=== PATIENT | male | born 1960 | race Asian ===

== ENCOUNTER 2021-04-12 07:32 | Outpatient (REF) | payer BC, SELFPAY ==
[2021-04-12 12:05] LABS: Estimated Average Glucose 194 mg/dL; Hemoglobin A1c % 8.4 %
[2021-04-12 12:09] LABS: Creatinine Urine 126.82 mg/dL; Microalbum/Creatinine Ratio Ur 29.1 ug/mg cr
[2021-04-12 12:11] LABS: Alanine Aminotransferase 48 U/L (0-40); Albumin Level 4.5 g/dL (3.5-5.0); Alkaline Phosphatase 68 U/L (39-117); Anion Gap 12 (12-20); Aspartate Amino Transferase 30 U/L (5-37); Bilirubin Total 1.1 mg/dL (0.0-1.0); Blood Urea Nitrogen 10 mg/dL (9-16); Calcium 10.1 mg/dL (8.4-10.2); Carbon Dioxide 31 mmol/L (22-29); Chloride 100 mmol/L (96-108); Cholesterol 142 mg/dL; Estimated Glomerular Filt Rate > 60; Glucose Random 178 mg/dL (60-115); HDL Cholesterol 38 mg/dL; LDL Cholesterol Calculated 74 mg/dl; Potassium 4.3 mmol/L (3.3-5.1); Sodium 139 mmol/L (135-145); Total Protein 7.7 g/dL (6.5-8.0); Triglycerides 151 mg/dL
[2021-04-12 12:33] LABS: Prostate Specific Antigen Scr 1.12 ng/mL (<0.05-4.0); TSH reflex Free T4 1.19 uIU/mL (0.32-4.0)
== END 2021-04-12 07:33 | disposition home or self-care (01) ==
LOC: HO.WFDLDS 07:32
PROVIDERS: Visit Provider Family Medicine
DX: Z00.00 Encounter for general adult medical examination without abnormal findings (principal); I10 Essential (primary) hypertension; R73.01 Impaired fasting glucose; Z12.5 Encounter for screening for malignant neoplasm of prostate
CPT/HCPCS: 36415; 80053; 80061; 82043; 83036; 84153; 84443

== ENCOUNTER → 2021-04-26 08:10 | Outpatient (BNVA) | payer BC, SELFPAY | PROVIDERS: PCP Family Medicine; Referring Provider Family Medicine; Visit Provider Internal Medicine | DX: I25.10 Atherosclerotic heart disease of native coronary artery without angina pectoris (principal); I25.5 Ischemic cardiomyopathy; I47.1 Supraventricular tachycardia; E11.8 Type 2 diabetes mellitus with unspecified complications; Z95.1 Presence of aortocoronary bypass graft | CPT/HCPCS: 93005 ==

== ENCOUNTER → 2021-06-07 07:31 | Outpatient (REF) | payer BC, SELFPAY ==
--- NOTE | 2021-06-07 07:33 | CA_ITS ---
Transthoracic Echocardiogram Patient (Last, First, Middle): Tani Leonard C Gender: Male Date of : 1960 Age: 60 Procedure Date: 06/07/2021 Procedure Type: Transthoracic Echocardiogram Location: OP Height: 182.88 cm Weight: 89.81 kg BSA: 2.12 m2 Heart Rate: bpm BP: 104 / 80 mmHg Roving Department Supervisor: LIZ Referring MD: Stewart Redding MD Salon Receptionist: Tenzin Stovall MD Symptoms: I25.10 - Atherosclerotic heart disease of [place] coronary... Study Quality: Fair ECG Rhythm: Sinus Conclusions: - 1. Normal LV systolic function with grade I diastolic dysfunction 2. Normal cardiac valvular Dopplers 3. No gross pericardial effusion Findings Left Ventricle Normal left ventricular size, thickness, and systolic function. The visually estimated ejection fraction is between 60-65%. There is no evidence of regional wall motion abnormalities. Spectral Doppler is indicative of an impaired relaxation filling pattern. E/E prime ratio is <8, consistent with normal filling pressures. Evidence suggests grade I (mild) diastolic dysfunction. Right Ventricle Normal right ventricular cavity size and systolic function. Atria The left atrium is mildly dilated. There is no evidence of interatrial shunt. The right atrium was not well visualized. Aortic Valve Normal aortic valve structure and function. There is no aortic valve stenosis. There is no aortic valve regurgitation. Mitral Valve There is mild posterior mitral leaflet thickening. There is mild mitral annular calcification. There is trace mitral valve regurgitation. There is no mitral valve stenosis. Pulmonic Valve The pulmonic valve was not well visualized. Tricuspid Valve Likely normal tricuspid valve structure and function. There is trace tricuspid valve regurgitation. Tricuspid regurgitation envelope is inadequate for calculation of right ventricular systolic pressure. Great Vessels All visible segments of the aorta are normal in size. The pulmonary artery was not well visualized. Venous The inferior vena cava is normal in size and collapses greater than 50% with inspiration. Pericardium/Pleural There is no evidence of pericardial effusion. Prior Study Comparison No prior study available for comparison. Measurements 2D Linear Measurements IVSd: 1.10 0.6-0.9/0.6-1.0 cm LVIDd: 4.85 3.9-5.3/4.2-5.9 cm LVIDd Index: 2.29 2.4-3.2/2.2-3.1 cm/m2 LVIDs: 3.01 2.0-3.6 cm LVPWd: 1.13 0.7-1.1 cm LA Diam: 4.70 2.7-3.8/3.0-4.0 cm LAIDs Index: 2.22 1.5-2.3 cm/m2 LV Mass: 250.44 67-162/88-224 g LV Mass Index: 118.13 43-95/49-115 g/m2 LVOT Diam: 2.50 3.0+(-)1.3 cm 2D Systolic Function EF 4C: 51.90 >55% EF 2C: 65.90 >55% EF BiP: 60.90 >55% Mitral Valve MV Pk E: 0.49 MV PK A: 0.82 MV Decel Time: 125.00 E/A: 0.60 E'Lateral: 7.72 E'Medial: 6.53 E/E' Med: 7.50 E/E' Lat: 6.30 PHT: 36.00 MVA PHT: 6.11 Decel [place]: 3.92 Aortic Valve AoV Pk Jose: 0.90 AoV Pk Grad: 3.00 LVOT LVOT Pk Jose: 0.67 LVOT Mn Jose: 0.46 LVOT VTI: 0.15 LVOT Pk Grad: 2.00 LVOT Mn Grad: 1.00 LVOT Diam: 2.50 LVOT Area: 4.91 Diastolic Function MV Pk E: 0.49 MV Pk A: 0.82 E/A: 0.60 E'Medial: 6.53 E/E' Med: 7.50 E' Laterial: 7.72 E/E' Lat: 6.30 Right Ventricle TAPSE (mm): 1.69 Tricuspid Valve RA Press: 3.00 Great Vessels Aorta Ao Asc: 3.70 2.1-3.4 cm Updated in Other Vendor System with Status of Final Tenzin Stovall MD electronically signed on 06/07/2021 8:23:39 PM with status of Final
== END ==
LOC: HO.CARD 07:31
PROVIDERS: PCP Family Medicine; Visit Provider Internal Medicine
DX: I25.10 Atherosclerotic heart disease of native coronary artery without angina pectoris (principal); Z95.1 Presence of aortocoronary bypass graft
CPT/HCPCS: 93306

== ENCOUNTER → 2021-06-29 12:58 | Outpatient (BNVA) | payer BC, SELFPAY | PROVIDERS: PCP Family Medicine; Referring Provider Family Medicine; Visit Provider Nurse Practitioner Family | DX: Z13.89 Encounter for screening for other disorder (principal) ==

== ENCOUNTER 2021-08-01 08:12 | Outpatient (REF) | payer BC, SELFPAY ==
[2021-08-01 12:09] LABS: Estimated Average Glucose 177 mg/dL; Hemoglobin A1c % 7.8 %
[2021-08-01 12:10] LABS: Alanine Aminotransferase 35 U/L (0-40); Albumin Level 4.5 g/dL (3.5-5.0); Alkaline Phosphatase 75 U/L (39-117); Anion Gap 14 (12-20); Aspartate Amino Transferase 24 U/L (5-37); Bilirubin Total 1.4 mg/dL (0.0-1.0); Blood Urea Nitrogen 12 mg/dL (9-16); Carbon Dioxide 27 mmol/L (22-29); Chloride 100 mmol/L (96-108); Cholesterol 112 mg/dL; Estimated Glomerular Filt Rate > 60; Glucose Fasting 175 mg/dL (60-99); HDL Cholesterol 35 mg/dL; LDL Cholesterol Calculated 52 mg/dl; Potassium 3.8 mmol/L (3.3-5.1); Sodium 137 mmol/L (135-145); Total Protein 7.5 g/dL (6.5-8.0); Triglycerides 129 mg/dL
== END 2021-08-01 08:13 | disposition home or self-care (01) ==
LOC: HO.WFDLDS 08:12
PROVIDERS: Visit Provider Family Medicine
DX: Z00.00 Encounter for general adult medical examination without abnormal findings (principal); E11.8 Type 2 diabetes mellitus with unspecified complications; I25.10 Atherosclerotic heart disease of native coronary artery without angina pectoris
CPT/HCPCS: 36415; 80053; 80061; 83036

== ENCOUNTER → 2021-12-19 08:01 | Outpatient (REF) | payer BC, SELFPAY ==
--- NOTE | ~2021-12-19 | NM_ITS ---
Exercise Myocardial perfusion study Indication: Atherosclerotic heart disease to evaluate for myocardial ischemia Technique: The patient was brought in for an exercise perfusion study on 12/19/2021. Patient performed exercise as per Clayton protocol and was injected 30 mCi of sestamibi was given intravenously one target HR was achieved. Images were obtained using the SPECT gamma camera interlaced with the gating device. Images were obtained in supine position. Resting perfusion study was performed on 12/20/2021. Patient was administered 30 mCi of sestamibi intravenously at rest. Images were then obtained in supine position. Images obtained with and without CT attenuation. Total DLP 75 mGy-cm. Images were processed with the software and compared side to side in short axis, horizontal long axis and vertical long axis views. Findings: The stress perfusion study showed non attenuated images show normal uptake of radiotracer in all segments of LV myocardium. Attenuation corrected images show minimal defect of the LV myocardium.. The gated study shows normal LV systolic function with calculated LVEF of 56%. LV cavity is normal in size. The gated study shows normal systolic wall thickening and contraction of all segments. There is no transient ischemic dilation. Resting study shows no change in perfusion pattern compared to stress perfusion study. Gating at rest reveals normal systolic wall motion with ejection fraction at 56%. The findings are consistent with normal myocardial perfusion. NM/NM cardiolite stress test Impression: 1. Normal myocardial perfusion 2. Gated LVEF is 56% 3. Transient ischemic dilatation not present Stress EKG is equivocal for ischemia
--- NOTE | 2021-12-19 08:04 | CA_ITS ---
Acquisition Time: 2021-12-19 08:20:44 Total Exercise Time: 00:06:26 Test Indications: Abnormal ECG Medications: SEE CHART Protocol: NIELS Max HR: 144 BPM 91% of Pred: 157 BPM Max BP: 170/078 mmHG Max Work Load: 7.6 METS Exercise stress test with exercise 6 min 26 sec of Niels protocol, achieving 92% MPHR, with mild sob, no chest discomfort, with isolated PACs and PVCs, with normotensive response to exercise, without EKG changes meeting criteria for ischemia, with borderline EKG changes noted in leads aVF, V6 of unclear signficance. Nuclear images pending. Test reviewed with Dr Redding. Note: Patient had time of rest, relaxation prior between initial BP reading and BP obtained in stage 1 of exercise. BP drop most likely reflects this. Referred By: Stewart Redding Overread By: PINEDA LEIGH
== END ==
LOC: HO.CARD 08:01
PROVIDERS: PCP Family Medicine; Visit Provider Internal Medicine
DX: I25.10 Atherosclerotic heart disease of native coronary artery without angina pectoris (principal)
CPT/HCPCS: 78452; 93017; A9500

== ENCOUNTER 2022-06-20 15:54 | Outpatient (REF) | payer BC, SELFPAY ==
--- NOTE | ~2022-06-20 | US_ITS ---
EXAMINATION: US SOFT TISSUE NECK CLINICAL INFORMATION: Localized swelling, mass and lump, head. COMPARISON: None available. TECHNIQUE: Ultrasound of the neck soft tissues is performed with high- frequency rolle-scale imaging and color Doppler. FINDINGS: Within the right submandibular region there is an enlarged lymph node which measures 1.5 cm in transverse dimension and demonstrates no appreciable fatty hilum. There is an additional adjacent lymph node which measures 1.1 cm in maximum transverse dimension but demonstrates a normal fatty hilum. Within the right superhilar mandibular region there is a lymph node which measures 1.3 cm in maximum transverse dimension and only a faint fatty hilum. Limited imaging of the left submandibular region demonstrates a few normal-sized, normal-appearing lymph nodes. US/US soft tiss head and/or neck IMPRESSION: Enlarged lymph nodes are present within the right submandibular and supramandibular regions. These are nonspecific in nature. Further evaluation can be obtained with CT soft tissue neck with intravenous contrast as clinically indicated.
== END 2022-06-20 15:55 | disposition home or self-care (01) ==
LOC: HO.US 15:54
PROVIDERS: Visit Provider Family Medicine
DX: R22.0 Localized swelling, mass and lump, head (principal)
CPT/HCPCS: 76536

== ENCOUNTER 2022-06-27 09:05 | Outpatient (REF) | payer BC, SELFPAY ==
[2022-06-27 11:25] LABS: MANUAL DIFF FLAG NO
[2022-06-27 12:02] LABS: Basophils Absolute Auto 0.1 X10*3/uL (0.0-0.2); Basophils Percent Auto 1.3 % (0-2); Eosinophils Absolute Auto 0.4 X10*3/uL (0.0-0.4); Eosinophils Percent Auto 5.8 % (0-4); Hematocrit 46.8 % (42.0-52.0); Hemoglobin 16.4 g/dl (14.0-18.0); Imm Gran Abs Auto 0.02 X10*3/uL (0.00-0.03); Imm Gran Pct Auto 0.3 % (0.0-0.4); Lymphocytes Absolute Auto 1.6 X10*3/uL (1.2-4.9); Lymphocytes Percent Auto 24.6 % (20-40); Mean Corpuscular Hemoglobin 30.4 pg (27.0-33.0); Mean Corpuscular Volume 86.7 fL (80.0-98.0); Mean Platelet Volume 10.4 fL (9.4-12.4); Monocytes Absolute Auto 0.5 X10*3/uL (0.1-1.2); Monocytes Percent Auto 6.9 % (2-11); Neutrophils Absolute Auto 4.1 x10*3/uL (2.0-8.3); Neutrophils Percent Auto 61.1 % (45-73); Platelet Count 255 X10*3/uL (160-400); Red Cell Distribution Width 12.4 % (11.0-16.0); White Blood Count 6.7 X10*3/uL (4.8-10.8)
[2022-06-27 12:39] LABS: Anion Gap 12 (12-20); Blood Urea Nitrogen 12 mg/dL (9-16); Carbon Dioxide 30 mmol/L (22-29); Chloride 100 mmol/L (96-108); Estimated Glomerular Filt Rate 58; Glucose Random 212 mg/dL (60-115); Potassium 4.4 mmol/L (3.3-5.1); Sodium 138 mmol/L (135-145)
== END 2022-06-27 09:06 | disposition home or self-care (01) ==
LOC: HO.WFDLDS 09:05
PROVIDERS: Visit Provider Family Medicine
DX: Z00.00 Encounter for general adult medical examination without abnormal findings (principal); R59.1 Generalized enlarged lymph nodes
CPT/HCPCS: 36415; 80048; 85025

== ENCOUNTER 2022-08-03 10:16 | Outpatient (REF) | payer BC, SELFPAY ==
--- NOTE | ~2022-08-03 | CT_ITS ---
EXAMINATION: CT SOFT TISSUE NECK WITH CONTRAST CLINICAL INFORMATION: R submandibular mass w/ abnormal U/S. COMPARISON: None. TECHNIQUE: Following the administration of 60 mL of Omnipaque 300 intravenous contrast, helical imaging was performed in the axial plane with generation of coronal and sagittal reformatted images. This CT examination was performed using dose optimization techniques as appropriate, variously including the following: *Automated exposure control. *Adjustment of mA and/or kV according to patient size (this includes techniques or standardized protocols for targeted exams where dose is matched to indication/reason for exam; i.e. extremities or head). *Use of iterative reconstruction technique. DLP: 343 mGy-cm. FINDINGS: Nasopharynx/skull base: The fat planes of the skull base and soft tissues of the nasopharynx are unremarkable. The paranasal sinuses and mastoid air cells are well aerated. The temporomandibular joints are normal. Suprahyoid neck: The oropharynx, oral cavity, and bilateral salivary gland tissues are unremarkable. Infrahyoid neck: The hypopharynx and larynx are unremarkable. No aerodigestive tract mass. Thyroid: The thyroid gland is normal. Lymph nodes: There are several mildly enlarged right level 1B cervical lymph nodes measuring up to 1.1 cm short axis (series 4 image 153). No other cervical lymphadenopathy. Lung apices: The partially visualized lung apices are clear. Status post median sternotomy. Vascular structures: No hemodynamically significant stenosis, dissection, or occlusion. Osseous structures: The osseous structures are intact without suspicious focal lesion. Moderate to advanced multilevel cervical spondylosis. Other: The imaged portions of the brain parenchyma are unremarkable. CT/CT soft tissue neck w IV con IMPRESSION: Mild right level 1B cervical lymphadenopathy of uncertain etiology. Otherwise unremarkable soft tissues of the neck.
[2022-08-03] MEDS: iohexoL 350 MG/ML 100 ML INFUS..BTL 60 ML IV (10:55)
[2022-08-04 07:09] LABS: Creatinine POC 0.9 mg/dL (0.5-1.4); GFR POC > 60
== END 2022-08-03 10:17 | disposition home or self-care (01) ==
LOC: HO.CT 10:16
PROVIDERS: PCP Family Medicine; Visit Provider Family Medicine
DX: R22.0 Localized swelling, mass and lump, head (principal); R59.1 Generalized enlarged lymph nodes
CPT/HCPCS: 70491; 82565; Q9967

== ENCOUNTER 2022-11-08 15:20 | Outpatient (AMB) | payer BC, SELFPAY ==
--- NOTE | 2022-11-08 15:24 | A.OFFPC_ITS ---
Vital Signs 11/08/22 15:25 Height 6 ft Weight 193 lb BMI 26.2 BP 136/78 Blood Pressure Location Lt brachial Position Sitting Pulse 111 H Pulse Source Pulse Oximeter Pulse Oximetry (%) 96 Oxygen Delivery Method Room Air Intake Visit Reasons: f/u diabetes Intake Note: Patient is here to follow up on his diabetes. Allergies lisinopril Allergy (Intermediate, Verified 11/08/22 15:28) Dizziness hornet venom Allergy (Mild, Verified 11/08/22 15:28) Swelling tetracycline Adverse Reaction (Intermediate, Verified 11/08/22 15:28) Unconscious Tobacco use date assessed: 07/03/22 Dental Screening Dental Screen Date: 11/08/22 Did you have a dental visit in the last 12 months?: No Did you have a dental problem in the last 6 months where you did not have access to dental care?: No Was dental information given to patient?: No HPI f/u diabetes HPI Details 62 y/o male presents to f/u diabetes and hypertension. A1c had worsened to 8.3% and had increased his Trulicity and continued his other medications as prescribed. A1c today 11/08/22 is 6.4%. Blood pressure today is 136/78. He is on losartan 25mg daily. [facility] Medical History Atherosclerotic cardiovascular disease MIGUEL (obstructive sleep apnea) SVT (supraventricular tachycardia) Surgical History Hx of knee surgery S/P CABG x 7 Family History Mother Diabetes Father Pancreatic cancer Brother CAD (coronary artery disease) ASHD (arteriosclerotic heart disease) Sister Breast cancer Sister Major depression Brother ASHD (arteriosclerotic heart disease) CAD (coronary artery disease) Social History Housing: House Alcohol intake: current Alcohol intake frequency: holidays/special occasions only Patient Tobacco Use Status: Former Tobacco user Quit Date: 2006 Years Smoked: 40 +/- e-Cigarette/Vaping Use: Never Used Second Hand Smoke Exposure: No service: No Current occupational status: employed Current occupational exposures/hazards: No Cognitive needs: No Hearing needs: No Vision needs: No Questionnaire Thrive Questionnaire Date Thrive assessed: 04/07/22 HARINI-7 AMB Questionnaire HARINI-7 Date HARINI - 7 assessed: 04/07/22 Source: Developed by Drs. Yonny Workman, Grace Reyes, Christopher Smith and colleagues, with an educational catracho from [employer]. Review of Systems Const Denies chills, Denies fatigue, Denies fever(s), Denies headache(s) and Denies weakness ENT Denies dizziness and Denies headache(s) Card Denies chest pain, Denies lightheadedness, Denies dyspnea and Denies other (Palpitations) Resp Denies cough, Denies dyspnea, Denies wheezing and Denies other ( shortness of breath) Musc Denies numbness and Denies tingling Neuro Denies dizziness, Denies headache(s), Denies numbness, Denies tingling, Denies paresthesias and Denies weakness Psych Denies anxiety and Denies depression Endo Denies fatigue Aller/Immun Denies wheezing Physical exam (Primary Care) Vital Signs: Last Vital Signs Pulse 111 H 11/08/22 15:25 BP 136/78 11/08/22 15:25 Pulse Ox 96 11/08/22 15:25 Oxygen Delivery Method Room Air 11/08/22 15:25 BMI result Body Mass Index 26.2 Tobacco/Smoking Status: Tobacco use Status Tobacco use date assessed 07/03/22 11/08/22 15:46 Patient Tobacco Use Status Former Tobacco user 11/08/22 15:46 e-Cigarette/Vaping Use Never Used 11/08/22 15:46 Thrive Assessment: Date of Thrive Assessment Date Thrive assessed 04/07/22 11/08/22 15:46 Const General: no acute distress and well developed Nutritional Appearance: well nourished Orientation/consciousness: patient oriented x3 HENMT Head: Yes normocephalic and Yes atraumatic Eyes General: appearance normal, both eyes and all related structures Pupils: Equal, round and reactive pupils present EOM: EOMs intact bilaterally Resp Effort & Inspection: normal respiratory effort Auscultation: clear to auscultation bilaterally Cardio Rate: regular rate Rhythm: regular rhythm Heart sounds: S1 normal heart sound present, S2 normal heart sound present, no gallops, no murmurs and no rubs Neuro General: patient oriented x3 and gait normal Cranial nerves: Yes Equal, round and reactive pupils present Psych Affect: normal affect Results AMB Hemoglobin A1c AMB Hemoglobin A1c 6.4 % Last Edit by Shefali Glass CMA on 11/08/22 16:13 Results Reviewed Results Reviewed: Laboratory Last Values Hgb A1c (Clinic) 6.4 % (4.0-6.0) H 11/08/22 16:12 Assessment and Plan Assessment & Plan (1) Diabetes: Code(s): E11.9 - Type 2 diabetes mellitus without complications Plan: A1c now at 6.4%. Good control. Goal is less than 7.0% Patient would like to decrease metformin from 500 mg a.m. and 250 mg p.m. to: 250 mg b.i.d. He will continue Trulicity and glipizide as prescribed. (2) Hypertension: Code(s): I10 - Essential (primary) hypertension Plan: Blood pressure is borderline today. Goal is less than 130/80 for patient with coronary artery disease Heart rate is a little elevated today as well He appears somewhat dry and is likely somewhat dehydrated. Continue current medication regimen. Hydrate well. We will follow-up at his next visit. (3) Coronary artery disease: Code(s): I25.10 - Atherosclerotic heart disease of [place] coronary artery without angina pectoris Plan: Stable Follow-up with Cardiology as recommended (4) Erectile dysfunction: Code(s): N52.9 - Male erectile dysfunction, unspecified Plan: Patient can use Cialis. I explained to him that while I can prescribe this medication and he and I can agree that it is okay for him to take it, his insurance can declined to pay for it to though they cannot deny him the medication if he is willing to self pay. We discussed coupons. Will refill and he will try coupons and self pay Orders: Orders AMB Hemoglobin A1c Today Z13.9 - Encounter for screening, unspecified Medications: Refilled tadalafil (Cialis) administer approximately 30min before sexual activity; do not use more than 1 dose per 24hrs 20 mg PO DAILY PRN 20 tabs 3RF sexual activity 30 days Coding Level of Care Code Est Pt Level 4 (00998) Diagnoses Diabetes E11.9 Hypertension I10 Coronary artery disease I25.10 Erectile dysfunction N52.9
[2022-11-08 15:25] VITALS: BP 136/78; PULSE 111; O2SAT 96; BMI 26.2
== END 2022-11-08 16:38 | disposition home or self-care (01) ==
PROVIDERS: PCP Family Medicine; Visit Provider Family Medicine
DX: E11.9 Type 2 diabetes mellitus without complications (principal); I10 Essential (primary) hypertension; I25.10 Atherosclerotic heart disease of native coronary artery without angina pectoris; N52.9 Male erectile dysfunction, unspecified
CPT/HCPCS: 83036; 99214

== ENCOUNTER 2023-02-08 08:25 | Outpatient (AMB) | payer BC, SELFPAY ==
[2023-02-08 08:36] VITALS: BP 122/70; PULSE 108; O2SAT 95; BMI 26.6
--- NOTE | 2023-02-08 08:36 | MHC.PC.OV ---
Vital Signs 02/08/23 08:36 Height 6 ft Weight 196 lb 7 oz BMI 26.6 BP 122/70 Blood Pressure Location Lt brachial Position Sitting Pulse 108 H Pulse Source Pulse Oximeter Pulse Oximetry (%) 95 Oxygen Delivery Method Room Air Intake Visit Reasons: f/u diabetes and hypertension Intake Note: Patient is here today, would like refills today on Metformin, Verapamil, and Losrtan,. Allergies lisinopril Allergy (Intermediate, Verified 02/08/23 08:39) Dizziness hornet venom Allergy (Mild, Verified 02/08/23 08:39) Swelling tetracycline Adverse Reaction (Intermediate, Verified 02/08/23 08:39) Unconscious Tobacco use date assessed: 02/08/23 Fall risk assessment: No Falls in past year Last assessed Fall Risk: 02/08/23 [facility] Medical History Atherosclerotic cardiovascular disease MIGUEL (obstructive sleep apnea) SVT (supraventricular tachycardia) Surgical History Hx of knee surgery S/P CABG x 7 Family History Mother Diabetes Father Pancreatic cancer Brother CAD (coronary artery disease) ASHD (arteriosclerotic heart disease) Sister Breast cancer Sister Major depression Brother ASHD (arteriosclerotic heart disease) CAD (coronary artery disease) Social History Housing: House Alcohol intake: current Alcohol intake frequency: holidays/special occasions only Patient Tobacco Use Status: Former Tobacco user Quit Date: 2006 Years Smoked: 40 +/- e-Cigarette/Vaping Use: Never Used Second Hand Smoke Exposure: No service: No Current occupational status: employed Current occupational exposures/hazards: No Cognitive needs: No Hearing needs: No Vision needs: No Questionnaire Thrive Questionnaire Date Thrive assessed: 04/07/22 HARINI-7 AMB Questionnaire HARINI-7 Date HARINI - 7 assessed: 04/07/22 Source: Developed by Drs. Yonny Workman, Grace Reyes, Christopher Smith and colleagues, with an educational catracho from [employer]. Review of Systems Const Denies chills, Denies fatigue, Denies fever(s), Denies headache(s) and Denies weakness ENT Denies dizziness and Denies headache(s) Card Denies chest pain, Denies lightheadedness, Denies dyspnea and Denies other (Palpitations) Resp Denies cough, Denies dyspnea, Denies wheezing and Denies other ( shortness of breath) Musc Denies numbness and Denies tingling Neuro Denies dizziness, Denies headache(s), Denies numbness, Denies tingling, Denies paresthesias and Denies weakness Psych Denies anxiety and Denies depression Endo Denies fatigue Aller/Immun Denies wheezing Physical exam (Primary Care) Vital Signs: Last Vital Signs Pulse 108 H 02/08/23 08:36 BP 122/70 02/08/23 08:36 Pulse Ox 95 02/08/23 08:36 Oxygen Delivery Method Room Air 02/08/23 08:36 BMI result Body Mass Index 26.6 Tobacco/Smoking Status: Tobacco use Status Tobacco use date assessed 02/08/23 02/08/23 08:45 Patient Tobacco Use Status Former Tobacco user 02/08/23 08:38 e-Cigarette/Vaping Use Never Used 02/08/23 08:38 Thrive Assessment: Date of Thrive Assessment Date Thrive assessed 04/07/22 02/08/23 08:38 Const General: no acute distress and well developed Nutritional Appearance: well nourished Orientation/consciousness: patient oriented x3 HENMT Head: Yes normocephalic and Yes atraumatic Eyes General: appearance normal, both eyes and all related structures Pupils: Equal, round and reactive pupils present EOM: EOMs intact bilaterally Resp Effort & Inspection: normal respiratory effort Auscultation: clear to auscultation bilaterally Cardio Rate: regular rate Rhythm: regular rhythm Heart sounds: S1 normal heart sound present, S2 normal heart sound present, no gallops, no murmurs and no rubs Neuro General: patient oriented x3 and gait normal Cranial nerves: Yes Equal, round and reactive pupils present Psych Affect: normal affect Results AMB Hemoglobin A1c AMB Hemoglobin A1c 7.2 % Last Edit by Shefali Glass CMA on 02/08/23 08:55 Assessment and Plan Assessment & Plan (1) Diabetes: Code(s): E11.9 - Type 2 diabetes mellitus without complications Plan: Has?increased?to?over?7%?and?goal?is?less?than?7%. Will?increase?Trulicity Continue?metformin?and?glipizide?as?prescribed. At?subsequent?visit?he?may?be?able?to?discontinue?metformin Of?note,?patient?does?say?that?he?has?some?mental?reservations?about?giving?himself?injections?with?Trulicity.??We?discussed?that?this?medication?is?likely?doing?most?of?the?work?of?controlling?his?blood?sugars.??He?opts?to?continue?it. In?the?future,?he?may?want?to?look?at?other?oral?options?though?I?am?not?sure?any?others?would?be?preferable. (2) Hypertension: Code(s): I10 - Essential (primary) hypertension Plan: Blood?pressure?shows?good?control.??Goal?is?less?than?130/80?for?patient?with?coronary?artery?disease Continue?current?medication?regimen (3) Coronary artery disease: Code(s): I25.10 - Atherosclerotic heart disease of [place] coronary artery without angina pectoris Plan: Stable Continue?atorvastatin Patient?wants?to?look?into?other?supplements?to?help?control?his?cholesterol Orders: Orders AMB Hemoglobin A1c Today Z13.9 - Encounter for screening, unspecified Coding Level of Care Code Est Pt Level 4 (52786) Diagnoses Diabetes E11.9 Hypertension I10 Coronary artery disease I25.10
== END 2023-02-08 09:07 | disposition home or self-care (01) ==
PROVIDERS: PCP Family Medicine; Visit Provider Family Medicine
DX: E11.9 Type 2 diabetes mellitus without complications (principal); I10 Essential (primary) hypertension; I25.10 Atherosclerotic heart disease of native coronary artery without angina pectoris
CPT/HCPCS: 83036; 99214

== ENCOUNTER 2023-05-10 09:20 | Outpatient (AMB) | payer BC, SELFPAY ==
--- NOTE | 2023-05-10 09:24 | A.OFFPC_ITS ---
Vital Signs 05/10/23 09:25 Height 6 ft Weight 198 lb BMI 26.9 BP 126/74 Blood Pressure Location Lt brachial Position Sitting Pulse 73 Pulse Source Pulse Oximeter Pulse Oximetry (%) 98 Oxygen Delivery Method Room Air Intake Visit Reasons: f/u diabetes and hypertension Intake Note: Patient is here to follow up on hypertension and diabetes, would like to get off the Metformin, and right ankle was twisted on 04/08/2023. He is also concerned of left shoulder pain. Allergies lisinopril Allergy (Intermediate, Verified 05/10/23 09:28) Dizziness hornet venom Allergy (Mild, Verified 05/10/23 09:28) Swelling tetracycline Adverse Reaction (Intermediate, Verified 05/10/23 09:28) Unconscious Tobacco use date assessed: 05/10/23 Fall risk assessment: 1 Fall in past year Dental Screening Dental Screen Date: 05/10/23 Did you have a dental visit in the last 12 months?: Yes Did you have a dental problem in the last 6 months where you did not have access to dental care?: No Was dental information given to patient?: Patient has dentist HPI f/u diabetes and hypertension HPI Details 62 y/o male presents to f/u diabetes and hypertension. A1c today 6.4%, much improved from 7.2% on 02/08/23. He is on metformin 250mg b.i.d., glipizide 10mg, dulaglutide 3mg. Blood pressure today 126/74. He is on losartan 25mg. Pt reports significant shoulder pain/disability. PFSH Medical History Atherosclerotic cardiovascular disease MIGUEL (obstructive sleep apnea) SVT (supraventricular tachycardia) Surgical History Hx of knee surgery S/P CABG x 7 Family History Mother Diabetes Father Pancreatic cancer Brother CAD (coronary artery disease) ASHD (arteriosclerotic heart disease) Sister Breast cancer Sister Major depression Brother ASHD (arteriosclerotic heart disease) CAD (coronary artery disease) Social History Housing: House Alcohol intake: current Alcohol intake frequency: holidays/special occasions only Patient Tobacco Use Status: Former Tobacco user Quit Date: 2006 Years Smoked: 40 +/- e-Cigarette/Vaping Use: Never Used Second Hand Smoke Exposure: No service: No Current occupational status: employed Current occupational exposures/hazards: No Cognitive needs: No Hearing needs: No Vision needs: No Questionnaire Thrive Questionnaire Date Thrive assessed: 04/07/22 HARINI-7 AMB Questionnaire HARINI-7 Date HARINI - 7 assessed: 04/07/22 Source: Developed by Drs. Yonny Workman, Grace Reyes, Christopher Smith and colleagues, with an educational catracho from [employer]. Review of Systems Const Denies chills, Denies fatigue, Denies fever(s), Denies headache(s) and Denies weakness ENT Denies dizziness and Denies headache(s) Card Denies chest pain, Denies lightheadedness, Denies dyspnea and Denies other (Palpitations) Resp Denies cough, Denies dyspnea, Denies wheezing and Denies other ( shortness of breath) Musc Details: Shoulder pain Denies numbness and Denies tingling Neuro Denies dizziness, Denies headache(s), Denies numbness, Denies tingling, Denies paresthesias and Denies weakness Psych Denies anxiety and Denies depression Endo Denies fatigue Aller/Immun Denies wheezing Physical exam (Primary Care) Vital Signs: Last Vital Signs Pulse 73 05/10/23 09:25 BP 126/74 05/10/23 09:25 Pulse Ox 98 05/10/23 09:25 Oxygen Delivery Method Room Air 05/10/23 09:25 BMI result Body Mass Index 26.9 Tobacco/Smoking Status: Tobacco use Status Tobacco use date assessed 05/10/23 05/10/23 09:35 Patient Tobacco Use Status Former Tobacco user 05/10/23 09:35 e-Cigarette/Vaping Use Never Used 05/10/23 09:35 Thrive Assessment: Date of Thrive Assessment Date Thrive assessed 04/07/22 05/10/23 09:35 Const General: no acute distress and well developed Nutritional Appearance: well nourished Orientation/consciousness: patient oriented x3 HENMT Head: Yes normocephalic and Yes atraumatic Eyes General: appearance normal, both eyes and all related structures Pupils: Equal, round and reactive pupils present EOM: EOMs intact bilaterally Resp Effort & Inspection: normal respiratory effort Auscultation: clear to auscultation bilaterally Cardio Rate: regular rate Rhythm: regular rhythm Heart sounds: S1 normal heart sound present, S2 normal heart sound present, no gallops, no murmurs and no rubs Neuro General: patient oriented x3 and gait normal Cranial nerves: Yes Equal, round and reactive pupils present Extrem Other: Decreased abduction and internal rotation Neer's test negative Psych Affect: normal affect Results AMB Hemoglobin A1c AMB Hemoglobin A1c 6.4 % Last Edit by Shefali Glass CMA on 05/10/23 09:44 Results Reviewed Results Reviewed: Laboratory Last Values Hgb A1c (Clinic) 6.4 % (4.0-6.0) H 05/10/23 09:39 Assessment and Plan Assessment & Plan (1) Hypertension: Code(s): I10 - Essential (primary) hypertension Plan: Blood?pressure?is?well?controlled.??Goal?is?less?than?130/80?for?patient?with?co ronary?artery?disease Continue?current?medication?regimen (2) Type 2 diabetes mellitus with unspecified complications: Code(s): E11.8 - Type 2 diabetes mellitus with unspecified complications Plan: A1c?shows?good?control?at?6.4%?after?increasing?Trulicity.??Goal?is?less?than?7. 0%. He?is?hoping?to?eventually?completely?get?off?of?metformin.??Currently?taking?25 0?mg?b.i.d. He?will?decrease?metformin?to?250?mg?q.a.m. Continue?Trulicity?and?glipizide?as?prescribed Continue?diabetic?diet,?exercise?and?weight?control Will?follow-up?in?3?months.??If?still?controlled?well?enough,?will?disc uss?stopping?metformin. (3) Coronary artery disease: Code(s): I25.10 - Atherosclerotic heart disease of [place] coronary artery without angina pectoris Plan: Stable Follow-up?with?Cardiology?as?recommended (4) Shoulder pain: Code(s): M25.519 - Pain in unspecified shoulder Plan: Left?shoulder?pain?with?decreased?abduction?and?internal?rotation. Neer's?test?negative. Does?not?appear?to?be?impingement Patient?says?he?has?spurs?in?right?shoulder. Will?check?x-ray?though?I?suspect?this?is?more?likely?a?rotator?cuff?injury. Patient?would?like?to?try?exercises?at?home?prior?to?cons idering?physical?therapy?so?I?demonstrated?exercises?with?him?in?the?office?toda y. He?can?let?me?know?if?worsening?or?not?improving. Will?call?him?if?x-ray?requires?action Orders: Orders AMB Hemoglobin A1c Today Z13.9 - Encounter for screening, unspecified XR shoulder LT min 2V Today M25.519 - Pain in unspecified shoulder Medications: Changed From metformin 250 mg (1/2 x 500 mg) PO BID 90 days 90 tabs 3RF To metformin 250 mg (1/2 x 500 mg) PO QAM 90 days 45 tabs 3RF Coding Level of Care Code Est Pt Level 4 (21394) Diagnoses Hypertension I10 Type 2 diabetes mellitus with unspecified complications E11.8 Coronary artery disease I25.10 Shoulder pain M25.519
[2023-05-10 09:25] VITALS: BP 126/74; PULSE 73; O2SAT 98; BMI 26.9
== END 2023-05-10 10:07 | disposition home or self-care (01) ==
PROVIDERS: PCP Family Medicine; Visit Provider Family Medicine
DX: I10 Essential (primary) hypertension (principal); E11.8 Type 2 diabetes mellitus with unspecified complications; I25.10 Atherosclerotic heart disease of native coronary artery without angina pectoris; M25.512 Pain in left shoulder
CPT/HCPCS: 83036; 99214

== ENCOUNTER 2023-08-09 09:19 | Outpatient (AMB) | payer BC, SELFPAY ==
[2023-08-09 09:28] VITALS: BP 124/70; PULSE 69; O2SAT 99; BMI 26.7
--- NOTE | 2023-08-09 09:28 | A.OFFPC_ITS ---
Vital Signs 08/09/23 09:28 Height 6 ft Weight 197 lb 2 oz BMI 26.7 BP 124/70 Blood Pressure Location Lt brachial Position Sitting Pulse 69 Pulse Source Pulse Oximeter Pulse Oximetry (%) 99 Oxygen Delivery Method Room Air Intake Visit Reasons: f/u diabetes and hypertension Intake Note: Patient is here for follow up on diabetes and hypertension. Patient wouold like to talk about blood pressure medicine. Allergies lisinopril Allergy (Intermediate, Verified 08/09/23 09:31) Dizziness hornet venom Allergy (Mild, Verified 08/09/23 09:31) Swelling tetracycline Adverse Reaction (Intermediate, Verified 08/09/23 09:31) Unconscious Medication List - Last Reconciled 08/09/23 by Jn Lacy MD arginine (L-arginine) 500 mg PO DAILY ashwagandha extract mg PO atorvastatin 40 mg PO DAILY 90 days citrulline (Pure L-Citrulline) 1.8 grams PO TID dulaglutide 3 mg (0.5 mL) subcut QWEEK 28 days glipizide ER 10 mg PO DAILY 90 days [l thiamine PO] losartan 25 mg PO DAILY 90 days magnesium citrate 100 mg PO DAILY metformin 250 mg (1/2 x 500 mg) PO QAM 90 days tadalafil (Cialis) 20 mg PO DAILY PRN 30 days verapamil ER 120 mg PO QAM 90 days Tobacco use date assessed: 08/09/23 Fall risk assessment: No Falls in past year Last assessed Fall Risk: 08/09/23 Dental Screening Dental Screen Date: 08/09/23 Did you have a dental visit in the last 12 months?: Yes Did you have a dental problem in the last 6 months where you did not have access to dental care?: No Was dental information given to patient?: Patient has dentist HPI f/u diabetes and hypertension HPI Details Patient?is?here?to?follow-up?diabetes?and?hypertension. He?notes?that?he?has?had?significant?dietary?indiscretions?with?sweets. He?has?been?taking?his?medications?as?prescribed.??We?had?decreased?his?metformi n?to?250?mg?daily? because?his?A1c?was?well?controlled?and?he?was?wanting?to?decrease?medication. However,?now?his?A1c?has?climbed?to?7.5%. Blood?pressure?appears?well?controlled.??He?is?only?been?taking?losartan?fo r?the?last?couple?of?months. Does?not?want?to?take?verapamil?any?long He?also?notes?that?since?he?discontinue?verapamil?erectile?dysfunction?has?impro warren.??He?says?Cialis?has?not?helped. PFSH Medical History MIGUEL (obstructive sleep apnea) SVT (supraventricular tachycardia) Atherosclerotic cardiovascular disease Surgical History Hx of knee surgery S/P CABG x 7 Family History Mother Diabetes Father Pancreatic cancer Brother CAD (coronary artery disease) ASHD (arteriosclerotic heart disease) Sister Breast cancer Sister Major depression Brother ASHD (arteriosclerotic heart disease) CAD (coronary artery disease) Social History Housing: House Alcohol intake: current Alcohol intake frequency: holidays/special occasions only Patient Tobacco Use Status: Former Tobacco user Quit Date: 2006 Years Smoked: 40 +/- e-Cigarette/Vaping Use: Never Used Second Hand Smoke Exposure: No service: No Current occupational status: employed Current occupational exposures/hazards: No Cognitive needs: No Hearing needs: No Vision needs: No Questionnaire PHQ-9 Over the last 2 weeks, how often have you been bothered by any of the following problems? 1. Little interest or pleasure in doing things: not at all 2. Feeling down, depressed, or hopeless: not at all 3. Trouble falling or staying asleep, or sleeping too much: not at all 4. Feeling tired or having little energy: not at all 5. Poor appetite or overeating: not at all 6. Feeling bad about yourself - or that you are a failure or have let yourself or your family down: not at all 7. Trouble concentrating on things, such as reading the newspaper or watching television: not at all 8. Moving or speaking so slowly that other people could have noticed. Or the opposite - being so fidgety or restless that you have been moving around a lot more than usual: not at all 9. Thoughts that you would be better off or of hurting yourself in some way: not at all Total score: 0 Source: Developed by Drs. Yonny Workman, Grace Reyes, Christopher Smith and colleagues, with an educational catracho from [employer]. Thrive Questionnaire Date Thrive assessed: 08/09/23 I am a: Patient What is your living situation today?: I have a steady place to live Within the past 12 months, did the food you bought not last and you didn't have the money to get more?: Never true Within the past 12 months, did you worry whether your food would run out before you got money to buy more?: Never true Do you have trouble paying for medicines?: Yes Do you have trouble getting transportation to medical appointments?: No Do you have trouble paying your heating and electricity bill?: No Do you have trouble taking care of your child, family member or friend?: No Do you have trouble with day-to-day activities such as bathing, preparing meals, shopping, managing finances, etc.?: No Are you currently unemployed and looking for a job?: No Are you interested in more education?: No THRIVE Score: 0 AUDIT C Alcohol Use Questionnaire (AUDIT-C) 1. How often do you have a drink containing alcohol?: Monthly or less 2. How many drinks containing alcohol do you have on a typical day when you are drinking?: 1 or 2 3. How often do you have six or more drinks on one occasion?: Never Total Score: 1 HARINI-7 AMB Questionnaire HARINI-7 Date HARINI - 7 assessed: 08/09/23 Feeling nervous, anxious, or on edge: 0 = Not at all Not being able to stop or control worryin = Not at all Worrying too much about different things: 0 = Not at all Trouble relaxin = Not at all Being so restless that it is hard to sit still: 0 = Not at all Becoming easily annoyed or irritable: 0 = Not at all Feeling afraid as if something awful might happen: 0 = Not at all Total HARINI-7 score (0-4 normal; 5-9 mild; 10-14 moderate; 15-21 severe): 0 Source: Developed by Drs. Yonny Workman, Grace Reyes, Christopher Smith and colleagues, with an educational catracho from [employer]. Review of Systems Const Details: CONSTITUTIONAL no fever. no fatigue. no chills. CARDIOVASCULAR no chest pain. no palpitations. RESPIRATORY no cough. no shortness of breath. no trouble breathing. no wheezing. PSYCHIATRIC no anxiety. no depression. NEUROLOGIC no incoordination. no headache. no weakness. no dizziness. no gait abnormality. Physical exam (Primary Care) Vital Signs: Last Vital Signs Pulse 69 08/09/23 09:28 BP 124/70 08/09/23 09:28 Pulse Ox 99 08/09/23 09:28 Oxygen Delivery Method Room Air 08/09/23 09:28 BMI result Body Mass Index 26.7 Tobacco/Smoking Status: Tobacco use Status Tobacco use date assessed 08/09/23 08/09/23 09:40 Patient Tobacco Use Status Former Tobacco user 08/09/23 09:40 e-Cigarette/Vaping Use Never Used 08/09/23 09:40 PHQ-9: PHQ-9 Score PHQ-9: Total score 0 08/09/23 09:40 Thrive Assessment: Date of Thrive Assessment Date Thrive assessed 08/09/23 08/09/23 09:40 Const Other: General Appearance: no apparent distress, pleasant. Heart: RRR, no murmurs, clicks or rubs, no gallops. Lungs: clear to auscultation. Extremities: no edema. Neurologic Exam: alert and oriented x3, gait normal, Psych: Normal affect Results AMB Hemoglobin A1c AMB Hemoglobin A1c 7.5 % Last Edit by Shefali Glass CMA on 08/09/23 09:50 Results Reviewed Results Reviewed: Laboratory Last Values Hgb A1c (Clinic) 7.5 % (4.0-6.0) H 08/09/23 09:50 Assessment and Plan Assessment & Plan (1) Hypertension: Code(s): I10 - Essential (primary) hypertension Plan: Blood?pressure?is?well?controlled.??Goal?is?less?than?140/90. Patient?discontinued?his?verapamil?and?is?only?taking?losartan. Continue?losartan.??Discontinued?verapamil?from?his?medication?list?as?he?is?no? longer?taking?it?but?his?blood?pressure?remains?well?controlled. (2) Diabetes: Code(s): E11.9 - Type 2 diabetes mellitus without complications Plan: A1c?climbed?significantly?to?7.5%.??Goal?is Less?than?7.0% He?does?not?want?to?increase?his?medications?at?this?time.??He?says?he?has?had?m any?dietary?indiscretions?and?wants?to?improved?diet?and?exercise. We?discussed?that?if?he?is?not?able?to?bring?his?blood?sugar?back?in?control?at? next?visit,?we?should?consider?increasing?his?medication?again.??Pa tient?understands. No?medication?changes?were?made?today. (3) Erectile dysfunction: Code(s): N52.9 - Male erectile dysfunction, unspecified Plan: This?has?improved?since?discontinuing?verapamil. Cialis?did?not?help Offered?to?refer?patient?to?Urology?but?he?declines?this?for?now. Orders: Orders AMB Hemoglobin A1c Today Z13.9 - Encounter for screening, unspecified Medications: Discontinued tadalafil (Cialis) administer approximately 30min before sexual activity; do not use more than 1 dose per 24hrs Discontinued Reason: Doctor's Order 20 mg PO DAILY 30 days PRN 20 tabs 3RF sexual activity verapamil ER Discontinued Reason: Doctor's Order 120 mg PO QAM 90 days 90 caps 2RF Coding Level of Care Code Est Pt Level 4 (75722) Diagnoses Hypertension I10 Diabetes E11.9 Erectile dysfunction N52.9
== END 2023-08-09 10:31 | disposition home or self-care (01) ==
PROVIDERS: PCP Family Medicine; Visit Provider Family Medicine
DX: I10 Essential (primary) hypertension (principal); E11.9 Type 2 diabetes mellitus without complications; N52.9 Male erectile dysfunction, unspecified
CPT/HCPCS: 83036; 99214

== ENCOUNTER 2023-09-20 09:34 | Outpatient (AMB) | payer BC, SELFPAY ==
--- NOTE | 2023-09-20 09:36 | A.OFFPC_ITS ---
Vital Signs 09/20/23 09:39 Height 6 ft Weight 196 lb BMI 26.6 BP 144/74 H Blood Pressure Location Rt brachial Position Sitting Respiration 14 Pulse 96 Pulse Source Pulse Oximeter Temp 98 F Temp Source Temporal Artery Scan Pulse Oximetry (%) 99 Oxygen Delivery Method Room Air Intake Visit Reasons: Discuss diabetes Intake Note: Patient states that he has gone about 4-5 weeks without insulin and would like a non needle non insulin alternative. 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 Accompanied by: Self / Same As Patient Allergies lisinopril Allergy (Intermediate, Verified 09/20/23 09:46) Dizziness hornet venom Allergy (Mild, Verified 09/20/23 09:46) Swelling tetracycline Adverse Reaction (Intermediate, Verified 09/20/23 09:46) Unconscious Medication List - Last Reconciled 09/20/23 by Jn Lacy MD arginine (L-arginine) 500 mg PO DAILY ascorbate calcium (vitamin C) 500 mg PO DAILY ashwagandha extract mg PO atorvastatin 40 mg PO DAILY 90 days cholecalciferol (vitamin D3) 25 mcg PO DAILY PRN citrulline (Pure L-Citrulline) 1.8 grams PO TID dapagliflozin propanediol (Farxiga) 10 mg PO QAM 90 days dulaglutide 3 mg (0.5 mL) subcut QWEEK 28 days glipizide ER 10 mg PO DAILY 90 days losartan 25 mg PO DAILY 90 days magnesium citrate 100 mg PO DAILY metformin 250 mg (1/2 x 500 mg) PO QAM 90 days shilajit mg PO Tobacco use date assessed: 09/20/23 Fall risk assessment: No Falls in past year Last assessed Fall Risk: 09/20/23 Dental Screening Dental Screen Date: 08/09/23 [facility] Medical History MIGUEL (obstructive sleep apnea) SVT (supraventricular tachycardia) Atherosclerotic cardiovascular disease Surgical History Hx of knee surgery S/P CABG x 7 Family History Mother Diabetes Father Pancreatic cancer Brother CAD (coronary artery disease) ASHD (arteriosclerotic heart disease) Sister Breast cancer Sister Major depression Brother ASHD (arteriosclerotic heart disease) CAD (coronary artery disease) Social History Housing: House Alcohol intake: current Alcohol intake frequency: holidays/special occasions only Patient Tobacco Use Status: Former Tobacco user Years Smoked: 40 +/- e-Cigarette/Vaping Use: Never Used Second Hand Smoke Exposure: No service: No Current occupational status: employed Current occupation: [employer] Current occupational exposures/hazards: No Cognitive needs: No Hearing needs: No Vision needs: No Questionnaire Thrive Questionnaire Date Thrive assessed: 08/09/23 HARINI-7 AMB Questionnaire HARINI-7 Date HARINI - 7 assessed: 08/09/23 Source: Developed by Drs. Yonny Workman, Grace Reyes, Christopher Smith and colleagues, with an educational catracho from [employer]. Physical exam (Primary Care) Vital Signs: Last Vital Signs Temp 98 F 09/20/23 09:39 Pulse 96 09/20/23 09:39 Resp 14 09/20/23 09:39 BP 144/74 H 09/20/23 09:39 Pulse Ox 99 09/20/23 09:39 Oxygen Delivery Method Room Air 09/20/23 09:39 BMI result Body Mass Index 26.6 Tobacco/Smoking Status: Tobacco use Status Tobacco use date assessed 09/20/23 09/20/23 09:52 Patient Tobacco Use Status Former Tobacco user 09/20/23 09:36 e-Cigarette/Vaping Use Never Used 09/20/23 09:36 Thrive Assessment: Date of Thrive Assessment Date Thrive assessed 08/09/23 09/20/23 09:36 Results AMB Hemoglobin A1c AMB Hemoglobin A1c 8.9 % Last Edit by PINO Flores on 09/20/23 10:4 0 Assessment and Plan Assessment & Plan (1) Diabetes: Code(s): E11.9 - Type 2 diabetes mellitus without complications Plan: A1c?is?poorly?controlled?at?at?8.8%?and?goal?is?less?than?7.0%. He?will?not?take?injectable?medications Working?with?patient,?we?will?continue?metformin?and?glipizide.??I?am?addin g?Farxiga?as?he?also?has?coronary?artery?disease. We?will?likely?also?need?to?increase?his?metformin?and?or?glipizide?at?his?next? visit. Encouraged?diabetic?diet (2) Hypertension: Code(s): I10 - Essential (primary) hypertension Plan: Blood?pressure?is?high?today?but?patient?says?he?is?fr ustrated.??Goal?is?less?than?130/80 Patient?says?his?systolic?blood?pressures?are?in?the?120s?at?home He?will?let?me?know?if?consistently?above?130 Continue?current?medication Watch?salt?and?sodium (3) Atherosclerotic cardiovascular disease: Code(s): I25.10 - Atherosclerotic heart disease of [place] coronary artery without angina pectoris Plan: Had?been?referred?to?[facility]cardiology?but?he?does?not?want?to?return?there. Once?referral?to?[facility]?and?I?have?made?this?today. Cholest wandy?was?controlled?at?last?check?but?this?was?over?a?year?ago.??Will?include?li pids?with?next?blood?draw?prior?to?his?next?visit?in?October (4) Coronary artery disease: Code(s): I25.10 - Atherosclerotic heart disease of [place] coronary artery without angina pectoris Plan: As?above,?referred?to?Cardiology?at[place] [place] Orders: Orders AMB Hemoglobin A1c Today E11.9 - Type 2 diabetes mellitus without complications Referrals Cardiology Referral I25.10 - Atherosclerotic heart disease of [place] coronary artery without angina pectoris, I25.5 - Ischemic cardiomyopathy, Z95.1 - Presence of aortocoronary bypass graft Medications: New dapagliflozin propanediol (Farxiga) 10 mg PO QAM 90 days 90 tabs 3RF Coding Level of Care Code Est Pt Level 4 (07661) Diagnoses Diabetes E11.9 Hypertension I10 Atherosclerotic cardiovascular disease I25.10 Coronary artery disease I25.10
[2023-09-20 09:39] VITALS: BP 144/74; PULSE 96; RESP 14; TEMP 36.6; O2SAT 99; BMI 26.6
== END 2023-09-20 11:32 | disposition home or self-care (01) ==
PROVIDERS: PCP Family Medicine; Visit Provider Family Medicine
DX: E11.9 Type 2 diabetes mellitus without complications (principal); I10 Essential (primary) hypertension; I25.10 Atherosclerotic heart disease of native coronary artery without angina pectoris
CPT/HCPCS: 83036; 99214

== ENCOUNTER 2023-10-22 07:47 | Outpatient (REF) | payer BC, SELFPAY ==
[2023-10-22 11:10] LABS: MANUAL DIFF FLAG NO
[2023-10-22 11:16] LABS: Appearance Urine Clear; Color Urine Yellow; Glucose Urine UA >=1000 mg/dL (Negative); Leukocyte Esterase Urine Negative (Negative); Nitrite Urine Negative (Negative); PH 6.5 (5.0-9.0); Specific Gravity - Urine >= 1.030 (1.005-1.025); UMIC TRIGGER UA YES; Urine Blood Negative (Negative); Urine Ketones Negative (Negative); Urine Protein Negative (Neg-Trace)
[2023-10-22 11:18] LABS: Basophils Absolute Auto 0.1 X10*3/uL (0.0-0.2); Basophils Percent Auto 1.5 % (0-2); Eosinophils Absolute Auto 0.9 X10*3/uL (0.0-0.4); Eosinophils Percent Auto 11.8 % (0-4); Hematocrit 50.9 % (42.0-52.0); Hemoglobin 17.8 g/dl (14.0-18.0); Imm Gran Abs Auto 0.02 X10*3/uL (0.00-0.03); Imm Gran Pct Auto 0.3 % (0.0-0.4); Lymphocytes Percent Auto 25.3 % (20-40); Mean Corpuscular Hemoglobin 30.5 pg (27.0-33.0); Mean Corpuscular Volume 87.3 fL (80.0-98.0); Mean Platelet Volume 10.3 fL (9.4-12.4); Monocytes Absolute Auto 0.5 X10*3/uL (0.1-1.2); Monocytes Percent Auto 6.5 % (2-11); Neutrophils Absolute Auto 4.3 x10*3/uL (2.0-8.3); Neutrophils Percent Auto 54.6 % (45-73); Platelet Count 233 X10*3/uL (160-400); Red Blood Count 5.83 X10*6/uL (4.60-5.80); White Blood Count 7.9 X10*3/uL (4.8-10.8)
[2023-10-22 11:25] LABS: Bacteria Urine None Seen (None Seen); Hyaline Casts Urine 0-2 /LPF (0-2); RBC Urine 0-2 /HPF (0-2); Squamous Epithelial Cell Urine 0-2 /HPF (0-2); WBC Urine 0-5 /HPF (0-5)
[2023-10-22 11:36] LABS: Alanine Aminotransferase 39 U/L (0-40); Albumin Level 4.5 g/dL (3.5-5.0); Alkaline Phosphatase 76 U/L (39-117); Anion Gap 14 (12-20); Aspartate Amino Transferase 32 U/L (5-37); Bilirubin Total 1.2 mg/dL (0.0-1.0); Blood Urea Nitrogen 13 mg/dL (9-16); Carbon Dioxide 25 mmol/L (22-29); Chloride 102 mmol/L (96-108); Cholesterol 147 mg/dL (<200); Estimated Glomerular Filt Rate > 60; Glucose Fasting 134 mg/dL (60-99); HDL Cholesterol 37 mg/dL (>40); LDL Cholesterol Calculated 63 mg/dL (<100); Potassium 4.2 mmol/L (3.3-5.1); Sodium 137 mmol/L (135-145); Total Protein 8.5 g/dL (6.5-8.0); Triglycerides 239 mg/dL (<150)
[2023-10-22 11:52] LABS: Creatinine Urine 71.67 mg/dL; Microalbum/Creatinine Ratio Ur 23.7 ug/mg cr (<30)
[2023-10-22 11:54] LABS: Prostate Specific Antigen Scr 1.52 ng/mL (<0.05-4.0)
[2023-10-22 11:54] LABS: TSH reflex Free T4 0.95 uIU/mL (0.32-4.0)
== END 2023-10-22 07:48 | disposition home or self-care (01) ==
LOC: HO.WFDLDS 07:47
PROVIDERS: Visit Provider Family Medicine
DX: Z00.00 Encounter for general adult medical examination without abnormal findings (principal); I25.10 Atherosclerotic heart disease of native coronary artery without angina pectoris; I10 Essential (primary) hypertension; Z12.5 Encounter for screening for malignant neoplasm of prostate
CPT/HCPCS: 36415; 80053; 80061; 81001; 82043; 82570; 84153; 84443; 85025

== ENCOUNTER 2023-11-19 09:55 | Outpatient (AMB) | payer BC, SELFPAY ==
--- NOTE | 2023-11-19 10:03 | A.OFFPC_ITS ---
Vital Signs 11/19/23 10:07 Height 6 ft Weight 192 lb 2 oz BMI 26.1 BP 138/62 Blood Pressure Location Rt brachial Position Sitting Respiration 14 Pulse 105 H Pulse Source Pulse Oximeter Pulse Oximetry (%) 98 Oxygen Delivery Method Room Air Intake Visit Reasons: CPE with health maintence - see comments Intake Note: Physical, lab results Broke Man Required: No Allergies lisinopril Allergy (Intermediate, Verified 11/19/23 10:04) Dizziness hornet venom Allergy (Mild, Verified 11/19/23 10:04) Swelling tetracycline Adverse Reaction (Intermediate, Verified 11/19/23 10:04) Unconscious Tobacco use date assessed: 09/20/23 Dental Screening Dental Screen Date: 08/09/23 HPI HPI Comments History of Present Illness Details This is a 63-year-old male with a past medical history of coronary artery disease, s/p CABG x7, obstructive sleep apnea, hyperlipidemia, hypertension, type 2 diabetes, ischemic cardiomyopathy, and GERD presenting for his physical exam. The patient is compliant with his diabetes regimen. Trulicity was switched to Farxiga this summer due to unavailability of the medication. He denies side effects on Farxiga. He does not check blood sugars and declined prescription for fingerstick glucometer and CGM. Denies symptoms of hypoglycemia. He is not due for his A1c today. Hemoglobin A1c was 8.9% 09/20/2023. He does not want to take further injectable medications. We reviewed additional lab results. Total protein is elevated at 8.5. This was previously normal at 7.5. He is not anemic. White blood cell count and platelet count are normal. He has eosinophilia with total eosinophils at 900 and eosinophil percentage at 11.8%. He has some environmental allergies but no other history of allergic disease like asthma or eczema. Denies fevers, chills, night sweats or unexplained weight loss. No easy bruising or bleeding. Patient is compliant with his current cardiovascular regimen. His LDL cholesterol is 63 with a goal of less than 70. HDL 37 and triglycerides 239. Denies chest pain or shortness of breath. He is overdue for routine cardiology follow up, and his PCP has already referred him. He says this is scheduled. Patient's blood pressure is suboptimal in his heart rate is 105. He tells me that he drank a few sodas with caffeine and 1 or 2 coffees today already. He also had half L of water. He gets up very early in the morning hours. Patient twisted his back a few weeks ago and has some pain on the right mid back. He applies topical lidocaine and we will put he and ice. He also fell back when he was outside a couple of weeks ago re-injuring this area. It is not tender to touch. No shortness a breath. He did hit his head during that time but had no serious injury or loss of consciousness. There was no bruising or swelling seen by the patient. Patient does not treat sleep apnea. He says he tried a couple of masks, and he isn't interested in treatment at this time. He looked into alternatives to CPAP. We reviewed immunizations that are recommended including shingles vaccine, tetanus immunization, annual influenza vaccine, pneumonia vaccine. Patient declines vaccinations. He is overdue for an eye exam, but he says he has no vision problem. I explained why this is necessary with diabetes. Patient declines colonoscopy and Cologuard against medical advice. ROS: Constitutional: No unexplained weight loss, fever, chills, fatigue or night sweats. Eyes: No vision changes, blurry vision, double vision, eye pain, eye redness, eye discharge. ENT: No hearing loss, sneezing, congestion, runny nose or sore throat. Respiratory: No shortness of breath, cough or sputum production. Cardiovascular: No chest pain, chest pressure or chest discomfort. No palpitations or pedal edema. Gastrointestinal: No anorexia, nausea, vomiting or diarrhea. No abdominal pain or blood in stool. Genitourinary: No dysuria, hematuria, urinary frequency. Neurologic: No headache, dizziness, syncope, unilateral weakness, ataxia, numbness or tingling in the extremities. Musculoskeletal: see HPI Hematologic/Lymphatics: No bleeding or bruising. No painful lymph nodes. Skin: No rash Endocrine: No cold or heat intolerance. No polyuria or polydipsia. Psychiatric: No depression or anxiety. No SI/HI. .Physical exam: Constitutional: Alert, in no distress. Head: Normocephalic. Eyes: Pupils are equal, round and reactive to light. Extraocular muscles intact. Ear, Nose and Throat: Canals clear. TMs normal. Normal nasal mucosa. No nasal discharge. No oral lesions. Neck: Supple, Full range of motion. No lymphadenopathy. No palpable thyroid masses. Respiratory: Clear to auscultation. Cardiovascular: S1 S2 regular. No murmurs. No carotid bruits. Gastrointestinal: Abdomen soft, non-tender, non-distended. Normal bowel sounds. No palpable masses. Genitourinary: No costovertebral angle tenderness. Neurologic: No focal neurological deficits. Symmetric patellar reflexes. Moves all extremities spontaneously. Skin: No rashes or discoloration. Musculoskeletal: No gross deformities. Normal range of motion. No spinal midline tenderness or tenderness to the ribs or back. Extremities: Warm and well perfused. No clubbing, cyanosis or edema. 3+ peripheral pulses bilaterally. Psychiatric: Normal mood and affect [facility] Medical History (Updated 11/19/23 @ 13:28 by CARLOS Damon) DM type 2 causing vascular disease Routine physical examination Eosinophilia Elevated total protein MIGUEL (obstructive sleep apnea) SVT (supraventricular tachycardia) Atherosclerotic cardiovascular disease Surgical History Hx of knee surgery S/P CABG x 7 Family History Mother Diabetes Father Pancreatic cancer Brother CAD (coronary artery disease) ASHD (arteriosclerotic heart disease) Sister Breast cancer Sister Major depression Brother ASHD (arteriosclerotic heart disease) CAD (coronary artery disease) Social History Housing: House Alcohol intake: current Alcohol intake frequency: holidays/special occasions only Patient Tobacco Use Status: Former Tobacco user Years Smoked: 40 +/- e-Cigarette/Vaping Use: Never Used Second Hand Smoke Exposure: No service: No Current occupational status: employed Current occupation: [employer] Current occupational exposures/hazards: No Cognitive needs: No Hearing needs: No Vision needs: No Questionnaire Thrive Questionnaire Date Thrive assessed: 08/09/23 HARINI-7 AMB Questionnaire HARINI-7 Date HARINI - 7 assessed: 08/09/23 Source: Developed by Drs. Yonny Workman, Grace Reyes, Christopher Smith and colleagues, with an educational catracho from [employer]. Physical exam (Primary Care) Vital Signs: Last Vital Signs Pulse 105 H 11/19/23 10:07 Resp 14 11/19/23 10:07 BP 138/62 11/19/23 10:07 Pulse Ox 98 11/19/23 10:07 Oxygen Delivery Method Room Air 11/19/23 10:07 BMI result Body Mass Index 26.1 Tobacco/Smoking Status: Tobacco use Status Tobacco use date assessed 09/20/23 11/19/23 10:07 Patient Tobacco Use Status Former Tobacco user 11/19/23 10:07 e-Cigarette/Vaping Use Never Used 11/19/23 10:07 Thrive Assessment: Date of Thrive Assessment Date Thrive assessed 08/09/23 11/19/23 10:07 Results Reviewed Results Reviewed: Laboratory Tests 09/20/23 10/22/23 10/22/23 10:27 07:40 07:48 WBC 7.9 RBC 5.83 H Hgb 17.8 Hct 50.9 Plt Count 233 Eos # (Auto) 0.9 H Creatinine 1.06 Fasting Glucose 134 H Hgb A1c (Clinic) 8.9 H Total Protein 8.5 H Triglycerides 239 H Cholesterol 147 LDL Cholesterol, Calc 63 HDL Cholesterol 37 L PSA Screen 1.52 TSH 0.95 Microalb/Creat Ratio 10/22/23 07:53 WBC RBC Hgb Hct Plt Count Eos # (Auto) Creatinine Fasting Glucose Hgb A1c (Clinic) Total Protein Triglycerides Cholesterol LDL Cholesterol, Calc HDL Cholesterol PSA Screen TSH Microalb/Creat Ratio 23.7 Assessment and Plan Assessment & Plan (1) Routine physical examination: Code(s): Z00.00 - Encounter for general adult medical examination without abnormal findings (2) Elevated total protein: Code(s): R77.8 - Other specified abnormalities of plasma proteins (3) Eosinophilia: Code(s): D72.10 - Eosinophilia, unspecified Qualifiers: Eosinophilia type: unspecified eosinophilia Qualified Code(s): D72.10 - Eosinophilia, unspecified (4) DM type 2 causing vascular disease: Code(s): E11.59 - Type 2 diabetes mellitus with other circulatory complications (5) Atherosclerotic cardiovascular disease: Code(s): I25.10 - Atherosclerotic heart disease of [place] coronary artery without angina pectoris Plan Patient is seen today for a routine physical. As part of this visit we reviewed the following issues, which are considered and essential part of preventative health in this age group: - Testicular cancer screening, which includes self exam teaching - Screening for colon cancer - Blood pressure screening - Cholesterol screening - Nutritional and exercise counseling - Counseling of injury prevention including fire prevention, smoke alarms and seat belt usage - Prevention of and/or testing for infectious diseases - Education about skin cancer - Recommendations about immunizations - Recommendation of an eye exam Patient was advised to decrease caffeine consumption. We will schedule follow up with his PCP to recheck vitals. Patient will repeat CBC and total protein, nonfasting, when he returns for A1c in December. We will schedule follow up with PCP following labs. Continue current diabetic regimen. Patient does not want diabetic testing supplies. He has an appointment scheduled with Cardiology. LDL at goal. Reviewed lifestyle modifications for hypertriglyceridemia and low HDL cholesterol. Continue cardiovascular meds. Orders: Orders Total Protein 11/19/23 R79.89 - Other specified abnormal findings of blood chemistry Complete Blood Count Auto Diff 11/19/23 R79.89 - Other specified abnormal findings of blood chemistry Hemoglobin A1c 11/19/23 E11.59 - Type 2 diabetes mellitus with other circulatory complications Coding Level of Care Code Est Pt Prev Care >65y(13657) Diagnoses Routine physical examination Z00.00 Elevated total protein R77.8 Eosinophilia, unspecified type D72.10 Eosinophilia type: unspecified eosinophilia DM type 2 causing vascular disease E11.59 Atherosclerotic cardiovascular disease I25.10
[2023-11-19 10:07] VITALS: BP 138/62; PULSE 105; RESP 14; O2SAT 98; BMI 26.1
== END 2023-11-19 10:49 | disposition home or self-care (01) ==
PROVIDERS: PCP Family Medicine; Visit Provider Family Medicine
DX: Z00.00 Encounter for general adult medical examination without abnormal findings (principal); R77.8 Other specified abnormalities of plasma proteins; D72.10 Eosinophilia, unspecified; E11.59 Type 2 diabetes mellitus with other circulatory complications; I25.10 Atherosclerotic heart disease of native coronary artery without angina pectoris
CPT/HCPCS: 99397

== ENCOUNTER 2023-11-30 06:54 | Outpatient (AMB) | payer BC, SELFPAY ==
--- NOTE | 2023-11-30 06:53 | A.OFFVIS_ITS ---
Vital Signs 11/30/23 06:58 11/30/23 07:57 Height 6 ft Weight 194 lb 0.108 oz BMI 26.3 BP 140/80 H 128/82 Blood Pressure Location Rt brachial Rt brachial Position Sitting Pulse 100 Pulse Source Pulse Oximeter Intake Visit Reasons: Diabetes Type 2 Intake Note: Patient presents today to re-establish treatment for Type 2 Diabetes Mellitus: Last Diabetic eye exam was on: DUE Last Podiatry exam was on: Does not see a Vibration Technician Most recent HbA1c: 8.9%, 09/20/2023 Random Glucose- 207 mg/dL, Today Master Control Supervisor Required: No Accompanied by: Self / Same As Patient Allergies lisinopril Allergy (Intermediate, Verified 11/30/23 06:59) Dizziness hornet venom Allergy (Mild, Verified 11/30/23 06:59) Swelling tetracycline Adverse Reaction (Intermediate, Verified 11/30/23 06:59) Unconscious HPI Comments Details: [63] YO [Male] who is seen in consultation for T2DM at the request of his PCP. His most recent A1c was 8.9% on , previous 7.5% on 08/09/2023, 05/10/2023 6.7%. When his A1C's were lower he was taking Trulicity which was stopped due to availability and he declined going on any additional injectables or restarting Trulicty due to his aversion of needles. He was started on Farxiga after stopping Trulicity. He is unable to tolerate higher doses of metformin as he believes it has caused some issues with ED. Initially diagnosed with T2DM in [proximally 2020]. Was initially started on treatment with [metformin]. Current regimen: Metformin 250 mg daily Farxiga 10 mg daily Glipizide ER 10 mg daily He does not check his blood sugar readings and has not been interested in a glucose sensor. He has no symptoms of low sugars. Family history of T2DM in [type 2 mother, father with pancreatic cancer, sibling with breast cancer]. Fibrosis-4 (Fib-4) Index for liver fibrosis (calculated on most recent lab work done: 10/23 ) 1.43points Advanced fibrosis [ excluded] Approximate Fibrosis stage Lila [0-1 ] *Use with caution in patients <35 or >65 years old, as the score has been shown to be less reliable in these patients. Had eyes checked 2 years ago and is not interested in scheduling an appointment [Denies ] neuropathy, does not see podiatry denies numbness, tingling, cramping [neg] nephropathy, on ARB. MIcroalbumin 17 10/23 [Has] HLD, on [statin]. Last LDL [63] as measured on [10/23]. [positive] CAD. Has had CABG x7, ischemic cardiomyopathy. Has not seen Cardiology in several years but has not upcoming appointment scheduled. He has untreated MIGUEL. Was unable to tolerate CPAP. Exercise: plans to increase, some limitations due to back pain. Diet: [Uses avocado or olive oil endorses eating some salmon/red meat he frequently snacks] He is willing to see a youth coordinator. He often eats what he wants. Weight: [Stable] No recent diabetes education. PFSH Medical History DM type 2 causing vascular disease Routine physical examination Eosinophilia Elevated total protein MIGUEL (obstructive sleep apnea) SVT (supraventricular tachycardia) Atherosclerotic cardiovascular disease Surgical History Hx of knee surgery S/P CABG x 7 Family History Mother Diabetes Father Pancreatic cancer Brother CAD (coronary artery disease) ASHD (arteriosclerotic heart disease) Sister Breast cancer Sister Major depression Brother ASHD (arteriosclerotic heart disease) CAD (coronary artery disease) Social History Housing: House Alcohol intake: current Alcohol intake frequency: holidays/special occasions only Patient Tobacco Use Status: Former Tobacco user Years Smoked: 40 +/- e-Cigarette/Vaping Use: Never Used Second Hand Smoke Exposure: No service: No Current occupational status: employed Current occupation: [employer] Current occupational exposures/hazards: No Cognitive needs: No Hearing needs: No Vision needs: No Physical Exam Vital Signs: Last Vital Signs Pulse 100 11/30/23 06:58 BP 128/82 11/30/23 07:57 BMI result Body Mass Index 26.3 Absence of Cushingoid features. Absence of acromegalic features. Neck exam reveals nl size thyroid about 15 gms. No thyroid nodules palpable. No carotid bruits present. Lungs CTA. Heart S1 S2, Reg R/R. No M/R/ G. Skin exam reveals absence of vitiligo or acanthosis nigricans. Abdominal exam reveals Soft NT/ND with NA BS. No organomegaly present. Const Other: Absence of Cushingoid features. Absence of acromegalic features. Neck exam reveals nl size thyroid about 15 gms. No thyroid nodules palpable. Lungs CTA. Heart S1 S2, Reg R/R. No M/R G. Skin exam reveals absence of vitiligo or acanthosis nigricans. Neck Other: . Extrem Other: Visual exam of foot performed. No ulcerations or open lesions. No onchomycosis, no callouses. No interdigit fissuring or maceration. Pulses 2 + distally Sensation intact to monofilament exam. Vibratory sensation sensed is intact with 128 Hz tuning fork Results Reviewed Results Reviewed: Laboratory Last Values Glucose (Clinic) 207 mg/dL (60-115) H 11/30/23 07:03 Laboratory Tests 10/22/23 10/22/23 07:48 07:53 Plt Count 233 Potassium 4.2 Creatinine 1.06 Estimated GFR > 60 AST 32 ALT 39 Triglycerides 239 H Cholesterol 147 LDL Cholesterol, Calc 63 HDL Cholesterol 37 L TSH 0.95 Urine Creatinine 71.67 Urine Microalbumin 17.0 Microalb/Creat Ratio 23.7 Assessment & Plan Assessment & Plan (1) Type 2 diabetes mellitus with unspecified complications: Code(s): E11.8 - Type 2 diabetes mellitus with unspecified complications Category: Medical Plan: 63-year-old type 2 diabetic with multiple cardiac comorbidities with a recent A1c of 8.9% on 09/19 after stopping Trulicity due to availability. He is not receptive to blood sugar testing, glucose sensing or starting any injectable medications. He will continue his current medications and we will add Actos 15 mg. We discussed several treatment options including going on a freestyle Joe which he will consider in the future. Reviewed symptoms of low glucose and risk of taking DM meds without checking sugars. For now he would like to maximize diet and increase his exercise to see if he can get his sugars under control. At length we reviewed the risks of untreated diabetes. He was counseled to seek treatment for MIGUEL which he declined. He was advised this can improve diabetes control. Shunt. Declined to schedule an eye examination. He was advised to add 15 minutes of walking in the evening. Orders: Referrals [employer] Nutrition Referral E11.59 - Type 2 diabetes mellitus with other circulatory complications Medications: New pioglitazone (Actos) 15 mg PO DAILY 90 days 90 tabs 1RF E11.59 - Type 2 diabetes mellitus with other circulatory complications Patient Instructions: The patient was counseled to achieve a target A1C of 7% (154 avg). Fasting blood sugars should be 90-130 in the morning and less than 180 two hours after meals. Reviewed the relationship between poor diabetic control and the developement of complications The patient was counseled to wear closed toe shoes, never walk barefooted and to inspect the feet daily. For any signs of infection or open wound patient should notify PCP or go to urgent care. Coding Level of Care Code Tele New Pt Level 5 (41505) Complex EM visit Add On G2211 Diagnoses Type 2 diabetes mellitus with unspecified complications E11.8 Time Spent (min) 60 Comment Time spent reviewing labs/provider notes, face to face, chart doc
[2023-11-30 06:58] VITALS: BP 140/80; PULSE 100; BMI 26.3
[2023-11-30 07:09] LABS: Glucose, Whole Blood 207 mg/dL (60-115)
[2023-11-30 07:57] VITALS: BP 128/82
== END 2023-11-30 07:42 | disposition home or self-care (01) ==
PROVIDERS: PCP Family Medicine; Visit Provider Nurse Practitioner Adult Health
DX: E11.8 Type 2 diabetes mellitus with unspecified complications (principal)
CPT/HCPCS: 99205

== ENCOUNTER → 2023-11-30 06:54 | Outpatient (BNVA) | payer BC, SELFPAY | PROVIDERS: PCP Family Medicine; Visit Provider Nurse Practitioner Adult Health | DX: E11.59 Type 2 diabetes mellitus with other circulatory complications (principal) | CPT/HCPCS: 82947 ==

== ENCOUNTER 2023-12-06 14:32 | Outpatient (AMB) | payer BC, SELFPAY ==
--- NOTE | 2023-12-06 14:35 | A.OFFVIS_ITS ---
VS Expanded 12/06/23 14:37 12/12/23 12:52 Height 6 ft 6 ft Weight 194 lb 14.218 oz 195 lb BMI 26.4 26.4 Intake Visit Reasons: T2DM w/other circulatory complications/CONFIRMED Allergies lisinopril Allergy (Intermediate, Verified 11/30/23 06:59) Dizziness hornet venom Allergy (Mild, Verified 11/30/23 06:59) Swelling tetracycline Adverse Reaction (Intermediate, Verified 11/30/23 06:59) Unconscious Nutrition Presentation Details: Pt presents for MNT for T2DM. Pt was referred by [facility] operator specialist, Rob Cortez Pt reports doing well, working on diet modifications, has episodes of increased intake of higher sugar containing foods. food frequency veg: daily 3-4 servings fruit: 2-3 (fruits/juices) fish: 3 x/wk starches > 30 serving/d beverages: water, diet beverages/juices/sugary beverage desserts: on and off fried foods: 0-2x/wk etoh: occ smoking-- physical activity: daily life activities monitoring BG-no BS Monitoring Most Recent Diabetes Results: Microalb/Creat Ratio 23.7 ug/mg cr (<30) 10/22/23 Cholesterol 147 mg/dL (<200) 10/22/23 HDL Cholesterol 37 mg/dL (>40) L 10/22/23 Triglycerides 239 mg/dL (<150) H 10/22/23 Creatinine 1.06 mg/dL (0.5-1.4) 10/22/23 Blood Urea Nitrogen 13 mg/dL (9-16) 10/22/23 Sodium 137 mmol/L (135-145) 10/22/23 Potassium 4.2 mmol/L (3.3-5.1) 10/22/23 Chloride 102 mmol/L (96-108) 10/22/23 Carbon Dioxide 25 mmol/L (22-29) 10/22/23 Calcium 10.0 mg/dL (8.4-10.2) 10/22/23 AST 32 U/L (5-37) 10/22/23 ALT 39 U/L (0-40) 10/22/23 Total Protein 8.5 g/dL (6.5-8.0) H 10/22/23 Albumin 4.5 g/dL (3.5-5.0) 10/22/23 [id number] Equation Height: 6 ft Weight: 195 lb Resting Metabolic Rate: 1711.82 Calculated Activity Level: Mild Activity Calories Needed to Maintain Weight: 2353.75 Diagnosis Nutrition problem #1: excessive energy intake As related to (etiology) #1: diagnosis As evidenced by (sign/symptom) #1: elevated HgbA1c (8.9% (09/2023)) PFSH Medical History DM type 2 causing vascular disease Routine physical examination Eosinophilia Elevated total protein MIGUEL (obstructive sleep apnea) SVT (supraventricular tachycardia) Atherosclerotic cardiovascular disease Surgical History Hx of knee surgery S/P CABG x 7 Family History Mother Diabetes Father Pancreatic cancer Brother CAD (coronary artery disease) ASHD (arteriosclerotic heart disease) Sister Breast cancer Sister Major depression Brother ASHD (arteriosclerotic heart disease) CAD (coronary artery disease) Social History Housing: House Alcohol intake: current Alcohol intake frequency: holidays/special occasions only Patient Tobacco Use Status: Former Tobacco user Years Smoked: 40 +/- e-Cigarette/Vaping Use: Never Used Second Hand Smoke Exposure: No service: No Current occupational status: employed Current occupation: [employer] Current occupational exposures/hazards: No Cognitive needs: No Hearing needs: No Vision needs: No Assessment & Plan Assessment & Plan (1) Type 2 diabetes mellitus with unspecified complications: Code(s): E11.8 - Type 2 diabetes mellitus with unspecified complications Category: Medical Plan: Wt: 89 Kg (12/24 ) Est kcal needs as per MSJ: 2400 (40% carb, 30% protein/fat) Est fluid needs as per 25-30 ml/d: 2700 Est prot per day as per 1 g/kg bw: 89 Recommend fiber intake : 8-10 g per day and gradually increase to 25-28 g per day for women and 35-38 g for men or as tolerated Recommend sodium intake per day : less than 2000 mg Educated patient on: ( R = reviewed V = verbalizes understanding N/R = needs review N/A = not applicable * Food sources of carbohydrate, adequate serving sizes and its role in various health conditions: R ,V * Differences between complex carbohydrates a simple carbohydrates, role of fiber in diet: R V * Lean protein sources of foods: R V * Differences between types of fats and role in diet (mono on saturated fat fatty acids, saturated fatty acids, trans fats): R V * Food sources of sodium in salt and healthy modifications for heart health in kidney health: R V * Vitamins and minerals: R V * Healthy plate method concept: R V * Physical activity: Benefits a precaution: R V * Hypoglycemia protocol (rule of 15): R , V * Dietary prevention of Hyperglycemia: R V Patient Instructions: Practice mindful eating Work on reducing amount of sugars in beverages, choose a fruit in place of fruit juices/fruit drinks follow healthy plate method at meals Coding Level of Care Code Nutr Indiv Intake (18493) Diagnoses Type 2 diabetes mellitus with unspecified complications E11.8 Time Spent (min) 30
[2023-12-06 14:37] VITALS: BMI 26.4
[2023-12-12 12:52] VITALS: BMI 26.4
== END 2023-12-06 15:19 | disposition home or self-care (01) ==
PROVIDERS: PCP Family Medicine; Visit Provider Dietitian, Registered
DX: E11.8 Type 2 diabetes mellitus with unspecified complications (principal)

== ENCOUNTER → 2023-12-06 14:32 | Outpatient (BNVA) | payer BC, SELFPAY | PROVIDERS: PCP Family Medicine; Visit Provider Dietitian, Registered | DX: E11.8 Type 2 diabetes mellitus with unspecified complications (principal); Z71.3 Dietary counseling and surveillance | CPT/HCPCS: 97802 ==

== ENCOUNTER 2023-12-24 07:33 | Outpatient (REF) | payer BC, SELFPAY ==
[2023-12-24 11:20] LABS: MANUAL DIFF FLAG NO
[2023-12-24 11:28] LABS: Basophils Absolute Auto 0.1 X10*3/uL (0.0-0.2); Basophils Percent Auto 1.4 % (0-2); Eosinophils Absolute Auto 0.8 X10*3/uL (0.0-0.4); Eosinophils Percent Auto 10.4 % (0-4); Hematocrit 52.7 % (42.0-52.0); Imm Gran Abs Auto 0.03 X10*3/uL (0.00-0.03); Imm Gran Pct Auto 0.4 % (0.0-0.4); Lymphocytes Absolute Auto 2.4 X10*3/uL (1.2-4.9); Lymphocytes Percent Auto 30.9 % (20-40); Mean Corpuscular HGB Conc 34.2 g/dl (31.0-36.0); Mean Corpuscular Hemoglobin 30.4 pg (27.0-33.0); Mean Corpuscular Volume 88.9 fL (80.0-98.0); Mean Platelet Volume 10.3 fL (9.4-12.4); Monocytes Absolute Auto 0.5 X10*3/uL (0.1-1.2); Monocytes Percent Auto 6.6 % (2-11); Neutrophils Percent Auto 50.3 % (45-73); Platelet Count 223 X10*3/uL (160-400); Red Blood Count 5.93 X10*6/uL (4.60-5.80); Red Cell Distribution Width 12.5 % (11.0-16.0); White Blood Count 7.9 X10*3/uL (4.8-10.8)
[2023-12-24 11:45] LABS: Estimated Average Glucose 180 mg/dL; Hemoglobin A1c % 7.9 % (<6.0)
[2023-12-24 11:58] LABS: Total Protein 8.7 g/dL (6.5-8.0)
== END 2023-12-24 07:34 | disposition home or self-care (01) ==
LOC: HO.WFDLDS 07:33
PROVIDERS: Visit Provider Physician Assistant Medical
DX: E11.59 Type 2 diabetes mellitus with other circulatory complications (principal); R79.89 Other specified abnormal findings of blood chemistry
CPT/HCPCS: 36415; 83036; 84155; 85025

== ENCOUNTER 2023-12-28 14:37 | Outpatient (AMB) | payer BC, SELFPAY ==
--- NOTE | 2023-12-28 14:43 | MHC.PC.OV ---
Vital Signs 12/28/23 14:44 Height 6 ft Weight 195 lb 6 oz BMI 26.5 BP 110/60 Blood Pressure Location Lt brachial Position Sitting Respiration 18 Pulse 103 H Pulse Source Pulse Oximeter Temp 98.0 F Temp Source Oral Pulse Oximetry (%) 95 Oxygen Delivery Method Room Air Intake Visit Reasons: with Dr. Lacy, follow up labs and DM Intake Note: follow up labs and DM Allergies lisinopril Allergy (Intermediate, Verified 12/28/23 14:44) Dizziness hornet venom Allergy (Mild, Verified 12/28/23 14:44) Swelling tetracycline Adverse Reaction (Intermediate, Verified 12/28/23 14:44) Unconscious Medication List - Last Reconciled 12/28/23 by Jn Lacy MD arginine (L-arginine) 500 mg PO DAILY ascorbate calcium (vitamin C) 500 mg PO DAILY ashwagandha extract mg PO atorvastatin 40 mg PO DAILY 90 days cholecalciferol (vitamin D3) 25 mcg PO DAILY PRN citrulline (Pure L-Citrulline) 1.8 grams PO TID dapagliflozin propanediol (Farxiga) 10 mg PO QAM 90 days glipizide ER 10 mg PO DAILY 90 days losartan 25 mg PO DAILY 90 days magnesium citrate 100 mg PO DAILY metformin 250 mg (1/2 x 500 mg) PO QAM 90 days omeprazole 20 mg PO DAILY PRN pioglitazone (Actos) 15 mg PO DAILY 90 days shilajit mg PO Tobacco use date assessed: 09/20/23 Dental Screening Dental Screen Date: 08/09/[address] Lacy, follow up labs and DM HPI Details 63 y/o male presents to f/u diabetes, labs. Labs drawn 12/24/23. Reviewed labs with pt. Mildly elevated RBC of 5.93, Hct 52.7. A1c 7.9%. He is on metformin 250mg, glipizide 10mg, Farxiga 10mg. Total protein and eosinophil elevated. Blood pressure today 110/60, 103p. He is on losartan 25mg daily. Tries to get some exercise. HPI Comments History of Present Illness Details Documentation assistance for Jn Lacy MD, was provided by Barrie Matos,? Command Center Analyst on 12/28/2023 at 2:50 PM EST. I, Dr. Lacy, have read, observed, and verified documentation. [facility] Medical History DM type 2 causing vascular disease Routine physical examination Eosinophilia Elevated total protein MIGUEL (obstructive sleep apnea) SVT (supraventricular tachycardia) Atherosclerotic cardiovascular disease Surgical History Hx of knee surgery S/P CABG x 7 Family History Mother Diabetes Father Pancreatic cancer Brother CAD (coronary artery disease) ASHD (arteriosclerotic heart disease) Sister Breast cancer Sister Major depression Brother ASHD (arteriosclerotic heart disease) CAD (coronary artery disease) Social History Housing: House Alcohol intake: current Alcohol intake frequency: holidays/special occasions only Patient Tobacco Use Status: Former Tobacco user Years Smoked: 40 +/- e-Cigarette/Vaping Use: Never Used Second Hand Smoke Exposure: No service: No Current occupational status: employed Current occupation: [employer] Current occupational exposures/hazards: No Cognitive needs: No Hearing needs: No Vision needs: No Questionnaire Thrive Questionnaire Date Thrive assessed: 08/09/23 AUDIT C Alcohol Use Questionnaire (AUDIT-C) 3. How often do you have six or more drinks on one occasion?: Never Total Score: 0 HARINI-7 AMB Questionnaire HARINI-7 Date HARINI - 7 assessed: 08/09/23 Source: Developed by Drs. Yonny Workman, Grace Reyes, Christopher Smith and colleagues, with an educational catracho from [employer]. Review of Systems Const Denies chills, Denies fatigue, Denies fever(s), Denies headache(s) and Denies weakness ENT Denies dizziness and Denies headache(s) Card Denies dyspnea Resp Denies cough, Denies dyspnea, Denies wheezing and Denies other (shortness of breath) Musc Denies numbness and Denies tingling Neuro Denies dizziness, Denies headache(s), Denies numbness, Denies tingling and Denies weakness Psych Denies anxiety and Denies depression Endo Denies fatigue Aller/Immun Denies wheezing Physical exam (Primary Care) Vital Signs: Last Vital Signs Temp 98.0 F 12/28/23 14:44 Pulse 103 H 12/28/23 14:44 Resp 18 12/28/23 14:44 BP 110/60 12/28/23 14:44 Pulse Ox 95 12/28/23 14:44 Oxygen Delivery Method Room Air 12/28/23 14:44 BMI result Body Mass Index 26.5 Tobacco/Smoking Status: Tobacco use Status Tobacco use date assessed 09/20/23 12/28/23 14:48 Patient Tobacco Use Status Former Tobacco user 12/28/23 14:48 e-Cigarette/Vaping Use Never Used 12/28/23 14:48 Thrive Assessment: Date of Thrive Assessment Date Thrive assessed 08/09/23 12/28/23 14:48 Const General: well developed; No acute distress Nutritional Appearance: well nourished Orientation/consciousness: patient oriented x3 HENMT Head: Yes normocephalic and Yes atraumatic Eyes General: appearance normal, both eyes and all related structures Pupils: Equal, round and reactive pupils present EOM: EOMs intact bilaterally Resp Effort & Inspection: normal respiratory effort Auscultation: clear to auscultation bilaterally Cardio Rate: regular rate Rhythm: regular rhythm Heart sounds: S1 normal heart sound present, S2 normal heart sound present, no gallops, no murmurs and no rubs Neuro General: patient oriented x3 and gait normal Cranial nerves: Yes Equal, round and reactive pupils present Psych Affect: normal affect Assessment and Plan Assessment & Plan (1) Diabetes: Code(s): E11.9 - Type 2 diabetes mellitus without complications Plan: A1c?much?improved?with?addition?of?Actos; 7.9% Goal?is?less?than?7.0% Continue?working?at?diabetic?diet?and?exercise?and?weight?loss. Again,?offered?continuous?glucose?monitor?and?patient?says?he?wants?think?about Follow-up?with?endocrinology?as?recommended (2) Eosinophilia: Code(s): D72.10 - Eosinophilia, unspecified Qualifiers: Eosinophilia type: unspecified eosinophilia Qualified Code(s): D72.10 - Eosinophilia, unspecified Plan: Unclear?cause Patient?does?note?that?he?has?significant?allergies?though?he?does?not?treat?them. Electrophoresis?studies?still?pending Will?follow-up?on?these?and?call?patient?if?action?is?required (3) Hypertension: Code(s): I10 - Essential (primary) hypertension Plan: Blood?pressure?is?controlled.??Goal?is?less?than?130/80 Continue?current?medication (4) Coronary artery disease: Code(s): I25.10 - Atherosclerotic heart disease of [place] coronary artery without angina pectoris Plan: Stable Continue?to?control?blood?pressure,?blood?sugar?and?lipids Encouraged?exercise,?weight?loss?and?healthy?diet Follow-up?with?Cardiology?as?recommended (5) Sleep apnea: Code(s): G47.30 - Sleep apnea, unspecified Plan: Patient?declines?referral?to?Sleep?Medicine Encouraged?him?to?sleep?on?his?side Coding Level of Care Code Est Pt Level 4 (66108) Diagnoses Diabetes E11.9 Eosinophilia, unspecified type D72.10 Eosinophilia type: unspecified eosinophilia Hypertension I10 Coronary artery disease I25.10 Sleep apnea G47.30
[2023-12-28 14:44] VITALS: BP 110/60; PULSE 103; RESP 18; TEMP 36.7; O2SAT 95; BMI 26.5
== END 2023-12-28 15:22 | disposition home or self-care (01) ==
PROVIDERS: PCP Family Medicine; Visit Provider Family Medicine
DX: E11.9 Type 2 diabetes mellitus without complications (principal); D72.10 Eosinophilia, unspecified; I10 Essential (primary) hypertension; I25.10 Atherosclerotic heart disease of native coronary artery without angina pectoris; G47.30 Sleep apnea, unspecified

== ENCOUNTER → 2023-12-28 14:37 | Outpatient (BNVA) | payer BC, SELFPAY | PROVIDERS: PCP Family Medicine; Visit Provider Family Medicine | DX: E11.9 Type 2 diabetes mellitus without complications (principal); D72.10 Eosinophilia, unspecified; I10 Essential (primary) hypertension; I25.10 Atherosclerotic heart disease of native coronary artery without angina pectoris; G47.30 Sleep apnea, unspecified ==

== ENCOUNTER 2024-03-04 08:21 | Outpatient (AMB) | payer BC, SELFPAY ==
--- NOTE | 2024-03-04 07:37 | A.OFFVIS_ITS ---
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 12.24.23 A1C reduced to 7.9%, A1c 8.9% , previous 7.5% on 08/09/2023, 05/10/2023 6.7%. When his A1C's were lower he was taking Trulicity which was stopped due to availability and he declined going on any additional injectables or restarting Trulicty due to his aversion of needles. He was started on Farxiga after stopping Trulicity. He is unable to tolerate higher doses of metformin as he believes it has caused some issues with ED. Initially diagnosed with T2DM in [proximally 2020]. Was initially started on treatment with [metformin]. Current regimen: Metformin 250 mg daily Farxiga 10 mg daily Glipizide ER 10 mg daily actos 5mg He does not check his blood sugar readings and has not been interested in a glucose sensor. He has no symptoms of low sugars. Family history of T2DM in [type 2 mother, father with pancreatic cancer, sibling with breast cancer]. Fibrosis-4 (Fib-4) Index for liver fibrosis (calculated on most recent lab work done: 10/23 ) 1.43points Advanced fibrosis [ excluded] Approximate Fibrosis stage Lila [0-1 ] *Use with caution in patients <35 or >65 years old, as the score has been shown to be less reliable in these patients. Had eyes checked 2 years ago and is not interested in scheduling an appointment, declined again today [Denies ] neuropathy, does not see podiatry denies numbness, tingling, cramping [neg] nephropathy, on ARB. MIcroalbumin 17 10/23 [Has] HLD, on [statin]. Last LDL [63] as measured on [10/23]. [positive] CAD. Has had CABG x7, ischemic cardiomyopathy. Sees cardiology and had recent cardiac echo Exercise: plans to increase but hasn't, some limitations due to back pain. Diet: [Uses avocado or olive oil endorses eating some salmon/red meat he frequently snacks] He often eats what he wants but has been paying more attention recently. Weight: [Stable] No recent diabetes education. PFSH Medical History DM type 2 causing vascular disease Routine physical examination Eosinophilia Elevated total protein MIGUEL (obstructive sleep apnea) SVT (supraventricular tachycardia) Atherosclerotic cardiovascular disease Surgical History Hx of knee surgery S/P CABG x 7 Family History Mother Diabetes Father Pancreatic cancer Brother CAD (coronary artery disease) ASHD (arteriosclerotic heart disease) Sister Breast cancer Sister Major depression Brother ASHD (arteriosclerotic heart disease) CAD (coronary artery disease) Social History Housing: House Alcohol intake: current Alcohol intake frequency: holidays/special occasions only Patient Tobacco Use Status: Former Tobacco user Years Smoked: 40 +/- e-Cigarette/Vaping Use: Never Used Second Hand Smoke Exposure: No service: No Current occupational status: employed Current occupation: [employer] Current occupational exposures/hazards: No Cognitive needs: No Hearing needs: No Vision needs: No Physical Exam Vital Signs: Last Vital Signs Pulse 85 03/04/24 08:30 BP 118/80 03/04/24 08:30 BMI result Body Mass Index 26.9 Const Other: Absence of Cushingoid features. Absence of acromegalic features. Neck exam reveals nl size thyroid about 15 gms. No thyroid nodules palpable. No carotid bruits present. Lungs CTA. Heart S1 S2, Reg R/R. No M/R G. Skin exam reveals absence of vitiligo or acanthosis nigricans. No edema Visual exam of foot performed. No ulcerations or open lesions. No inter digit maceration or fissuring. No onychomycosis, no callouses. Sensation intact to monofilament exam. Vibratory sensation is normal with 128 Hz tuning fork. Results Reviewed Results Reviewed: Laboratory Last Values Glucose (Clinic) 96 mg/dL (60-115) 03/04/24 08:31 Assessment & Plan Assessment & Plan (1) Type 2 diabetes mellitus with unspecified complications: Code(s): E11.8 - Type 2 diabetes mellitus with unspecified complications Category: Medical Plan: 63-year-old type 2 diabetic with multiple cardiac comorbidities who was seen as a new consult several months ago and declined going on a glucose sensor. He is doing better with the addition of Actos. Recommended he add a 15 min walk in the evening which he is considering but has not started. He is paying better attention to his diet and his goal is to come off some of the medication he is on. He was given lab order for hemoglobin A1c and BMP The patient had an opportunity to ask questions regarding treatment plan. The patient expressed understanding and agreement with the above treatment plan. The patient is aware they should contact our office by phone for worsening glucose readings or for any low blood sugars which may warrant a change in diabetes medication. Compliance is encouraged with medications and any followup testing/consults which may have been ordered. Orders: Orders Hemoglobin A1c Today E11.8 - Type 2 diabetes mellitus with unspecified complications Basic Metabolic Panel Fasting Today E11.8 - Type 2 diabetes mellitus with unspe cified complications Patient Instructions: The patient was counseled to achieve a target A1C of 7% (154 avg). Fasting blood sugars should be 90-130 in the morning and less than 180 two hours after meals. Reviewed the relationship between poor diabetic control and the development of complications. Check your feet daily looking for any signs of infection, ulceration and seek medical attention if this occurs. Break in shoes gradually and do not wear open-toed shoes or walk barefooted. Coding Level of Care Code Est Pt Level 3 (04446) Complex EM visit Add On G2211 Diagnoses Type 2 diabetes mellitus with unspecified complications E11.8 Time Spent (min) 15 Comment Time spent reviewing labs/provider notes, face to face, chart doc
[2024-03-04 08:30] VITALS: BP 118/80; PULSE 85; BMI 26.9
[2024-03-04 08:39] LABS: Glucose, Whole Blood 96 mg/dL (60-115)
== END 2024-03-04 08:56 | disposition home or self-care (01) ==
PROVIDERS: PCP Family Medicine; Visit Provider Nurse Practitioner Adult Health
DX: E11.8 Type 2 diabetes mellitus with unspecified complications (principal)
CPT/HCPCS: 99213

== ENCOUNTER → 2024-03-04 08:21 | Outpatient (BNVA) | payer BC, SELFPAY | PROVIDERS: PCP Family Medicine; Visit Provider Nurse Practitioner Adult Health | DX: E11.8 Type 2 diabetes mellitus with unspecified complications (principal) | CPT/HCPCS: 82947 ==

== ENCOUNTER 2024-04-09 07:45 | Outpatient (REF) | payer BC, SELFPAY ==
[2024-04-09 11:29] LABS: Estimated Average Glucose 180 mg/dL; Hemoglobin A1C 273.5985 umol/L; Hemoglobin A1c % 7.9 % (<6.0); Total Hemoglobin (HGBA1C) 4359.1341 umol/L
[2024-04-09 11:47] LABS: Anion Gap 12 (12-20); Blood Urea Nitrogen 18 mg/dL (9-16); Calcium 9.4 mg/dL (8.4-10.2); Carbon Dioxide 28 mmol/L (22-29); Chloride 103 mmol/L (96-108); Estimated Glomerular Filt Rate > 60; Glucose Fasting 126 mg/dL (60-99); Potassium 3.9 mmol/L (3.3-5.1); Sodium 139 mmol/L (135-145)
== END 2024-04-09 07:46 | disposition home or self-care (01) ==
LOC: HO.WFDLDS 07:45
PROVIDERS: Visit Provider Nurse Practitioner Adult Health
DX: E11.8 Type 2 diabetes mellitus with unspecified complications (principal)
CPT/HCPCS: 36415; 80048; 83036

== ENCOUNTER 2024-04-15 09:25 | Outpatient (AMB) | payer BC, SELFPAY ==
--- NOTE | 2024-04-15 09:31 | MHC.PC.OV ---
Vital Signs 04/15/24 09:35 Height 6 ft Weight 203 lb BMI 27.5 BP 106/62 Blood Pressure Location Lt brachial Position Sitting Respiration 14 Pulse 100 Pulse Source Pulse Oximeter Temp 98.4 F Temp Source Oral Pulse Oximetry (%) 95 Oxygen Delivery Method Room Air Intake Visit Reasons: f/u hypertension, diabetes Intake Note: f/u htn and dm Allergies lisinopril Allergy (Intermediate, Verified 04/15/24 09:34) Dizziness hornet venom Allergy (Mild, Verified 04/15/24 09:34) Swelling tetracycline Adverse Reaction (Intermediate, Verified 04/15/24 09:34) Unconscious Medication List - Last Reconciled 04/15/24 by Jn Lacy MD arginine (L-arginine) 500 mg PO DAILY ascorbate calcium (vitamin C) 500 mg PO DAILY ashwagandha extract mg PO atorvastatin 40 mg PO DAILY 90 days cholecalciferol (vitamin D3) 25 mcg PO DAILY PRN citrulline (Pure L-Citrulline) 1.8 grams PO TID dapagliflozin propanediol (Farxiga) 10 mg PO QAM 90 days glipizide ER 10 mg PO DAILY 90 days losartan 25 mg PO DAILY 90 days magnesium citrate 100 mg PO DAILY metformin 250 mg (1/2 x 500 mg) PO QAM 90 days omeprazole 20 mg PO DAILY PRN pioglitazone (Actos) 15 mg PO DAILY 90 days shilajit mg PO Tobacco use date assessed: 09/20/23 Dental Screening Dental Screen Date: 08/09/23 HPI f/u hypertension, diabetes HPI Details 63 y/o male presents to f/u HTN, diabetes. Pt had eosinophilia and mildly elevated protein level. Last A1c in December 7.9%. He is on metformin 250mg, glipizide 10mg, Farxiga 10mg. Blood pressure today 106/62, 100p. He is on losartan 25mg. A1c 04/09/24 7.9%. [facility] Medical History DM type 2 causing vascular disease Routine physical examination Eosinophilia Elevated total protein MIGUEL (obstructive sleep apnea) SVT (supraventricular tachycardia) Atherosclerotic cardiovascular disease Surgical History Hx of knee surgery S/P CABG x 7 Family History Mother Diabetes Father Pancreatic cancer Brother CAD (coronary artery disease) ASHD (arteriosclerotic heart disease) Sister Breast cancer Sister Major depression Brother ASHD (arteriosclerotic heart disease) CAD (coronary artery disease) Social History Housing: House Alcohol intake: current Alcohol intake frequency: holidays/special occasions only Patient Tobacco Use Status: Former Tobacco user Years Smoked: 40 +/- e-Cigarette/Vaping Use: Never Used Second Hand Smoke Exposure: No service: No Current occupational status: employed Current occupation: [employer] Current occupational exposures/hazards: No Cognitive needs: No Hearing needs: No Vision needs: No Questionnaire PHQ-9 Over the last 2 weeks, how often have you been bothered by any of the following problems? 1. Little interest or pleasure in doing things: not at all 2. Feeling down, depressed, or hopeless: not at all 3. Trouble falling or staying asleep, or sleeping too much: not at all 4. Feeling tired or having little energy: not at all 5. Poor appetite or overeating: not at all 6. Feeling bad about yourself - or that you are a failure or have let yourself or your family down: not at all 7. Trouble concentrating on things, such as reading the newspaper or watching television: not at all 8. Moving or speaking so slowly that other people could have noticed. Or the opposite - being so fidgety or restless that you have been moving around a lot more than usual: not at all 9. Thoughts that you would be better off or of hurting yourself in some way: not at all Total score: 0 Source: Developed by Drs. Yonny Workman, Grace Reyes, Christopher Smith and colleagues, with an educational catracho from [employer]. Thrive Questionnaire Date Thrive assessed: 08/09/23 I am a: Patient What is your living situation today?: I choose not to answer this question Within the past 12 months, did the food you bought not last and you didn't have the money to get more?: I choose not to answer this question Within the past 12 months, did you worry whether your food would run out before you got money to buy more?: I choose not to answer this question Do you have trouble paying for medicines?: I choose not to answer this question Do you have trouble getting transportation to medical appointments?: I choose not to answer this question Do you have trouble paying your heating and electricity bill?: I choose not to answer this question Do you have trouble taking care of your child, family member or friend?: I choose not to answer this question Do you have trouble with day-to-day activities such as bathing, preparing meals, shopping, managing finances, etc.?: I choose not to answer this question Are you currently unemployed and looking for a job?: I choose not to answer this question Are you interested in more education?: I choose not to answer this question Please select the resources that you would like help with: None Currently or been in a relationship where the following occur: No concerns reported and I choose not to answer THRIVE Score: 0 AUDIT C Alcohol Use Questionnaire (AUDIT-C) 1. How often do you have a drink containing alcohol?: Never 3. How often do you have six or more drinks on one occasion?: Never Total Score: 0 HARINI-7 AMB Questionnaire HARINI-7 Date HARINI - 7 assessed: 08/09/23 Feeling nervous, anxious, or on edge: 0 = Not at all Not being able to stop or control worryin = Not at all Worrying too much about different things: 0 = Not at all Trouble relaxin = Not at all Being so restless that it is hard to sit still: 0 = Not at all Becoming easily annoyed or irritable: 0 = Not at all Feeling afraid as if something awful might happen: 0 = Not at all Total HARINI-7 score (0-4 normal; 5-9 mild; 10-14 moderate; 15-21 severe): 0 Source: Developed by Drs. Yonny Workman, Grace Reyes, Christopher Smith and colleagues, with an educational catracho from [employer]. Review of Systems Const Denies chills, Denies fatigue, Denies fever(s), Denies headache(s) and Denies weakness ENT Denies dizziness and Denies headache(s) Card Denies dyspnea Resp Denies cough, Denies dyspnea, Denies wheezing and Denies other (shortness of breath) Musc Denies numbness and Denies tingling Neuro Denies dizziness, Denies headache(s), Denies numbness, Denies tingling and Denies weakness Psych Denies anxiety and Denies depression Endo Denies fatigue Aller/Immun Denies wheezing Physical exam (Primary Care) Vital Signs: Last Vital Signs Temp 98.4 F 04/15/24 09:35 Pulse 100 04/15/24 09:35 Resp 14 04/15/24 09:35 BP 106/62 04/15/24 09:35 Pulse Ox 95 04/15/24 09:35 Oxygen Delivery Method Room Air 04/15/24 09:35 BMI result Body Mass Index 27.5 Tobacco/Smoking Status: Tobacco use Status Tobacco use date assessed 09/20/23 04/15/24 09:31 Patient Tobacco Use Status Former Tobacco user 04/15/24 09:31 e-Cigarette/Vaping Use Never Used 04/15/24 09:31 PHQ-9: PHQ-9 Score PHQ-9: Total score 0 04/15/24 09:48 Thrive Assessment: Date of Thrive Assessment Date Thrive assessed 08/09/23 04/15/24 09:31 Currently or been in a relationship where the following occur: No concerns reported and I choose not to answer Const General: well developed; No acute distress Nutritional Appearance: well nourished Orientation/consciousness: patient oriented x3 HENMT Head: Yes normocephalic and Yes atraumatic Eyes General: appearance normal, both eyes and all related structures Pupils: Equal, round and reactive pupils present EOM: EOMs intact bilaterally Resp Effort & Inspection: normal respiratory effort Neuro General: patient oriented x3 and gait normal Cranial nerves: Yes Equal, round and reactive pupils present Psych Affect: normal affect Coding Level of Care Code Est Pt Level 4 (15491) Diagnoses Diabetes E11.9 Hypertension I10 Eosinophilia, unspecified type D72.10 Eosinophilia type: unspecified eosinophilia Elevated total protein R77.8 Assessment & Plan Assessment & Plan (1) Diabetes: Code(s): E11.9 - Type 2 diabetes mellitus without complications Category: Medical Plan: Most?recent?A1c?7.9%?which?is?unchanged?from?prior?check. He?notes?that?he?has?had?dietary?indiscretions?during?the?holidays?and?this?is?consistent?with?weight?gain?over?these?months?as?well. He?is?not?followed?by?endocrinology?and?has?follow-up?appointment?in?May?and?July. Encouraged?more?consistent?diabetic?diet Encouraged?weight?loss Continue?current?medication?regimen. Follow-up?with?endocrinology?as?recommended (2) Hypertension: Code(s): I10 - Essential (primary) hypertension Category: Medical Plan: Blood?pressure?is?controlled.??Goal?is?less?than?130/80. Continue?current?medications Hydrate?well (3) Eosinophilia: Code(s): D72.10 - Eosinophilia, unspecified Category: Medical Qualifiers: Eosinophilia type: unspecified eosinophilia Qualified Code(s): D72.10 - Eosinophilia, unspecified Plan: Discussed?with?patient?that?eosinophils on?CBC?was?quite?high Would?like?to?rule?out hematologic?neoplasm?as?well?as?autoimmune?disorders. I?suspect?more?likely?allergy Labs?are?ordered?to?follow-up?on?this.??Patient?says?he?will?get?these?done?at?we?will?call?hospital?this?weekend. (4) Elevated total protein: Code(s): R77.8 - Other specified abnormalities of plasma proteins Category: Medical Plan: As Orders: Orders Protein Electrophoresis, Serum Today R77.8 - Other specified abnormalities of plasma proteins Comprehensive [place]. Panel Fast Today E11.59 - Type 2 diabetes mellitus with other circulatory complications, Z00.00 - Encounter for general adult medical examination without abnormal findings Microalbumin, Random (w Creat) Today E11.59 - Type 2 diabetes mellitus with other circulatory complications, I10 - Essential (primary) hypertension [place] Serum Today R77.8 - Other specified abnormalities of plasma proteins Immunoglobulins,IgG IgA IgM Today R77.8 - Other specified abnormalities of plasma proteins Immunofixation Pnl, Serum Today R77.8 - Other specified abnormalities of plasma proteins [place] Reflex Titer and Pattern Today D72.10 - Eosinophilia, unspecified
[2024-04-15 09:35] VITALS: BP 106/62; PULSE 100; RESP 14; TEMP 36.9; O2SAT 95; BMI 27.5
== END 2024-04-15 10:08 | disposition home or self-care (01) ==
PROVIDERS: PCP Family Medicine; Visit Provider Family Medicine
DX: E11.9 Type 2 diabetes mellitus without complications (principal); I10 Essential (primary) hypertension; D72.10 Eosinophilia, unspecified; R77.8 Other specified abnormalities of plasma proteins

== ENCOUNTER 2024-04-19 07:03 | Outpatient (REF) | payer BC, SELFPAY ==
[2024-04-19 08:16] LABS: Alanine Aminotransferase 33 U/L (0-40); Albumin Level 4.4 g/dL (3.5-5.0); Alkaline Phosphatase 86 U/L (39-117); Anion Gap 12 (12-20); Aspartate Amino Transferase 27 U/L (5-37); Blood Urea Nitrogen 12 mg/dL (9-16); Calcium 9.6 mg/dL (8.4-10.2); Carbon Dioxide 26 mmol/L (22-29); Chloride 104 mmol/L (96-108); Estimated Glomerular Filt Rate > 60; Glucose Fasting 123 mg/dL (60-99); Potassium 4.1 mmol/L (3.3-5.1); Sodium 138 mmol/L (135-145); Total Protein 8.8 g/dL (6.5-8.0)
[2024-04-19 11:08] LABS: Appearance Urine Clear; Color Urine Yellow; Glucose Urine UA 500 mg/dL (Negative); Leukocyte Esterase Urine Negative (Negative); Nitrite Urine Negative (Negative); Specific Gravity - Urine 1.025 (1.005-1.025); Urine Blood Negative (Negative); Urine Ketones Negative (Negative); Urine Protein Negative (Neg-Trace)
[2024-04-19 11:29] LABS: Creatinine Urine 47.89 mg/dL; Microalbum/Creatinine Ratio Ur 85.6 ug/mg cr (<30)
[2024-04-23 09:28] LABS: Prot Elec - Albumin 4.6 g/dL (3.8-4.8); Prot Elec - Alpha1 0.3 g/dL (0.2-0.3); Prot Elec - Alpha2 0.9 g/dL (0.5-0.9); Prot Elec - Beta 1 0.5 g/dL (0.4-0.6); Prot Elec - Beta 2 0.6 g/dL (0.2-0.5); Prot Elec - Gamma 1.6 g/dL (0.8-1.7); Prot Elec - Total Protein 8.6 g/dL (6.1-8.1)
[2024-04-23 11:28] LABS: IgA 195 mg/dL (70-320); IgG 1783 mg/dL (600-1540); IgM 105 mg/dL (50-300)
[2024-04-24 14:08] LABS: Anti Nuclear Antibody Screen NEGATIVE (NEGATIVE)
[2024-04-25 16:29] LABS: Kappa, Serum 518 mg/dL (176-443); Kappa/Lambda Ratio, Serum 1.97 (1.29-2.55); Lambda, Serum 263 mg/dL (91-240)
== END 2024-04-19 07:04 | disposition home or self-care (01) ==
LOC: HO.LAB 07:03
PROVIDERS: PCP Family Medicine; Visit Provider Family Medicine
DX: Z00.00 Encounter for general adult medical examination without abnormal findings (principal); D72.10 Eosinophilia, unspecified; I25.10 Atherosclerotic heart disease of native coronary artery without angina pectoris; R77.8 Other specified abnormalities of plasma proteins; E11.59 Type 2 diabetes mellitus with other circulatory complications; I10 Essential (primary) hypertension
CPT/HCPCS: 36415; 80053; 81003; 82043; 82570; 82784; 83883; 84165; 86038; 86334

== ENCOUNTER 2024-06-04 07:56 | Outpatient (AMB) | payer BC, SELFPAY ==
[2024-06-04 08:33] VITALS: BMI 27.7
--- NOTE | 2024-06-04 08:33 | A.OFFVIS_ITS ---
VS Expanded 06/04/24 08:33 Height 6 ft Weight 203 lb 14.841 oz BMI 27.7 Intake Visit Reasons: T2DM Allergies lisinopril Allergy (Intermediate, Verified 04/15/24 09:34) Dizziness hornet venom Allergy (Mild, Verified 04/15/24 09:34) Swelling tetracycline Adverse Reaction (Intermediate, Verified 04/15/24 09:34) Unconscious Nutrition Presentation Details: Pt presents for MNT f/u for T2DM Pt reports doing well , working on meal planning, reducing foods high in sugars food frequency fruits: 0-1/d veg: daily 1-2 serving/d dairy /alternatives: 2-3 serving/d starches > 25 serving/d fish: 1-2/wk physical acivtiy: ADL etoh/smoking ----- declines to monitor bg BS Monitoring Most Recent Diabetes Results: Microalb/Creat Ratio 85.6 ug/mg cr (<30) H 04/19/24 Creatinine 0.95 mg/dL (0.5-1.4) 04/19/24 Blood Urea Nitrogen 12 mg/dL (9-16) 04/19/24 Sodium 138 mmol/L (135-145) 04/19/24 Potassium 4.1 mmol/L (3.3-5.1) 04/19/24 Chloride 104 mmol/L (96-108) 04/19/24 Carbon Dioxide 26 mmol/L (22-29) 04/19/24 Calcium 9.6 mg/dL (8.4-10.2) 04/19/24 AST 27 U/L (5-37) 04/19/24 ALT 33 U/L (0-40) 04/19/24 Total Protein 8.8 g/dL (6.5-8.0) H 04/19/24 Albumin 4.4 g/dL (3.5-5.0) 04/19/24 PFSH Medical History DM type 2 causing vascular disease Routine physical examination Eosinophilia Elevated total protein MIGUEL (obstructive sleep apnea) SVT (supraventricular tachycardia) Atherosclerotic cardiovascular disease Surgical History Hx of knee surgery S/P CABG x 7 Family History Mother Diabetes Father Pancreatic cancer Brother CAD (coronary artery disease) ASHD (arteriosclerotic heart disease) Sister Breast cancer Sister Major depression Brother ASHD (arteriosclerotic heart disease) CAD (coronary artery disease) Social History Housing: House Alcohol intake: current Alcohol intake frequency: holidays/special occasions only Patient Tobacco Use Status: Former Tobacco user Years Smoked: 40 +/- e-Cigarette/Vaping Use: Never Used Second Hand Smoke Exposure: No service: No Current occupational status: employed Current occupation: [employer] Current occupational exposures/hazards: No Cognitive needs: No Hearing needs: No Vision needs: No Assessment & Plan Assessment & Plan (1) Type 2 diabetes mellitus with unspecified complications: Code(s): E11.8 - Type 2 diabetes mellitus with unspecified complications Category: Medical Plan: Wt: 89 Kg (12/24 ), 93 kg (06/24) Est kcal needs as per MSJ: 2400 (40% carb, 30% protein/fat) Est fluid needs as per 25-30 ml/d: 2700 Est prot per day as per 1 g/kg bw: 89 Recommend fiber intake : 8-10 g per day and gradually increase to 25-28 g per day for women and 35-38 g for men or as tolerated Recommend sodium intake per day : less than 2000 mg Educated patient on: ( R = reviewed V = verbalizes understanding N/R = needs review N/A = not applicable * Food sources of carbohydrate, adequate serving sizes and its role in various health conditions: R ,V * Differences between complex carbohydrates a simple carbohydrates, role of fiber in diet: R V * Lean protein sources of foods: R V * Differences between types of fats and role in diet (mono on saturated fat fatty acids, saturated fatty acids, trans fats): R V * Food sources of sodium in salt and healthy modifications for heart health in kidney health: R V * Vitamins and minerals: R V * Healthy plate method concept: R V * Physical activity: Benefits a precaution: R V * Hypoglycemia protocol (rule of 15): R , V * Dietary prevention of Hyperglycemia: R V Patient Instructions: Keep hydrated by having water with meals/snacks Choose high fiber foods (fruits, whole grain, veg) reduce on amount of fats the he meals (sauces, oils, gravies, cheeses ) Consider monitoring blood sugars for self assessment Coding Level of Care Code Nutr Indiv Subseq (77828) Diagnoses Type 2 diabetes mellitus with unspecified complications E11.8 Time Spent (min) 30
== END 2024-06-04 09:15 | disposition home or self-care (01) ==
PROVIDERS: PCP Family Medicine; Visit Provider Dietitian, Registered
DX: E11.8 Type 2 diabetes mellitus with unspecified complications (principal)

== ENCOUNTER → 2024-06-04 07:56 | Outpatient (BNVA) | payer BC, SELFPAY | PROVIDERS: PCP Family Medicine; Visit Provider Dietitian, Registered | DX: E11.8 Type 2 diabetes mellitus with unspecified complications (principal); Z71.3 Dietary counseling and surveillance | CPT/HCPCS: 97803 ==

== ENCOUNTER 2024-07-10 07:52 | Outpatient (AMB) | payer BC, SELFPAY ==
--- NOTE | 2024-07-10 07:01 | A.OFFVIS_ITS ---
Vital Signs 07/10/24 07:56 Weight 211 lb 10.3 oz BP 122/78 Blood Pressure Location Rt brachial Position Sitting Pulse 99 Pulse Source Pulse Oximeter Pulse Oximetry (%) 96 Oxygen Delivery Method Room Air Intake Visit Reasons: T2DM Intake Note: Patient presents today for a follow-up for Type 2 Diabetes Mellitus: Last Diabetic eye exam was on: OVER DUE Last Podiatry exam was on: Does not see a Stone Planer Most recent HbA1c: 10.0%, 07/10/2024 Random Glucose- 188 mg/dL, Today Hvac Tech Required: No Accompanied by: Self / Same As Patient Allergies lisinopril Allergy (Intermediate, Verified 07/10/24 07:57) Dizziness hornet venom Allergy (Mild, Verified 07/10/24 07:57) Swelling tetracycline Adverse Reaction (Intermediate, Verified 07/10/24 07:57) Unconscious HPI Comments Details: 63 YO male who is seen in f/u for T2DM who last seen 03/04/24 at which time A1C was reduced to 7.9% through lifestyle changes and the addition of low dose Actos. HgbA1C 07/10/24:10%. His weight is up 11 lb since his last visit he reports he has been snacking more on higher carb foods. He had lower A1c when he was taking Trulicity which was stopped due to availability and he declined going on any additional injectables or restarting Trulicty due to his aversion of needles. He was started on Farxiga after stopping Trulicity. He is unable to tolerate higher doses of metformin as he believes it has caused some issues with ED. Initially diagnosed with T2DM in [proximally 2020]. Was initially started on treatment with [metformin]. Current regimen: Metformin 250 mg daily Farxiga 10 mg daily Glipizide ER 10 mg daily actos 15mg He does not check his blood sugar readings and has not been interested in a glucose sensor. He has no symptoms of low sugars. Family history of T2DM in [type 2 mother, father with pancreatic cancer, sibling with breast cancer]. Fibrosis-4 (Fib-4) Index for liver fibrosis (calculated on most recent lab work done: 10/23 ) 1.43points Advanced fibrosis [ excluded] Approximate Fibrosis stage Lila [0-1 ] *Use with caution in patients <35 or >65 years old, as the score has been shown to be less reliable in these patients. Due for Rechrc 10/25 Had eyes checked 2 years ago and is not interested in scheduling an appointment, declined again today despite recommendations and explanation of how uncontrolled glucose affects the eyes. Denies neuropathy, does not see podiatry denies numbness, tingling, cramping No nephropathy, on ARB. MIcroalbumin 17 10/2304/19/2024 eGFR>60 [Has] HLD, on [statin]. Last LDL [63] as measured on [10/23]. [positive] CAD. Has had CABG x7, ischemic cardiomyopathy. Sees cardiology and had recent cardiac echo Exercise: some walking walks 15 min per day back and forth to work, some limitations due to back pain. Back has improved Diet: [Uses avocado or olive oil endorses eating some salmon/red meat he frequently snacks] Endorses eating higher carb snacks but has recently been attempting to curb this Weight: up since March No recent diabetes education. [facility] Medical History DM type 2 causing vascular disease Routine physical examination Eosinophilia Elevated total protein MIGUEL (obstructive sleep apnea) SVT (supraventricular tachycardia) Atherosclerotic cardiovascular disease Surgical History Hx of knee surgery S/P CABG x 7 Family History Mother Diabetes Father Pancreatic cancer Brother CAD (coronary artery disease) ASHD (arteriosclerotic heart disease) Sister Breast cancer Sister Major depression Brother ASHD (arteriosclerotic heart disease) CAD (coronary artery disease) Social History Housing: House Alcohol intake: current Alcohol intake frequency: holidays/special occasions only Patient Tobacco Use Status: Former Tobacco user Years Smoked: 40 +/- e-Cigarette/Vaping Use: Never Used Second Hand Smoke Exposure: No service: No Current occupational status: employed Current occupation: [employer] Current occupational exposures/hazards: No Cognitive needs: No Hearing needs: No Vision needs: No Physical Exam Vital Signs: Last Vital Signs Pulse 99 07/10/24 07:56 BP 122/78 07/10/24 07:56 Pulse Ox 96 07/10/24 07:56 Oxygen Delivery Method Room Air 07/10/24 07:56 Const Other: Absence of Cushingoid features. Absence of acromegalic features. Neck exam reveals nl size thyroid about 15 gms. No thyroid nodules palpable. No carotid bruits present. Lungs CTA. Heart S1 S2, Reg R/R. No M/R G. Skin exam reveals absence of vitiligo or acanthosis nigricans. No edema Skin on feet dry Visual exam of foot performed. No ulcerations or open lesions. No inter digit maceration or fissuring. No onychomycosis, no callouses. Sensation intact to mon ofilament exam. Vibratory sensation is normal with 128 Hz tuning fork. Results AMB Hemoglobin A1c AMB Hemoglobin A1c 10.0 % Last Edit by EVELYN Bowen on 07/10/24 08:1 0 Results Reviewed Results Reviewed: Laboratory Last Values Glucose (Clinic) 188 mg/dL (60-115) H 07/10/24 08:01 Hgb A1c (Clinic) 10.0 % (4.0-6.0) H 07/10/24 08:02 Assessment & Plan Assessment & Plan (1) Type 2 diabetes mellitus with unspecified complications: Code(s): E11.8 - Type 2 diabetes mellitus with unspecified complications Category: Medical Plan: 63-year-old type 2 diabetic with coronary artery disease with the an A1c today of 10%. He is adamant that he will not start any injectable medications or additional oral agents and refuses to check his blood sugar or initiate a glucose sensor. His A1c had declined to 7.9% when he was paying more attention to his diet. He will intensify his dietary measures. He has met with a Akash Painter RD numerous time in his knowledgeable in what to do. We discussed additional ways to incorporate more lower carb snacks and vegetables into his diet. He has been made aware that higher blood sugars we will lead to diabetic complications. He declines scheduling an eye examination despite recommendations. He is planning to move out of the area to the [facility] and does not wish to see opth here in [place]. I will see him back in 3 months for repeat A1C. Hopefully with life style modifications he can reduce his A1c again. The patient had an opportunity to ask questions regarding treatment plan. The patient expressed understanding and agreement with the above treatment plan. The patient is aware they should contact our office by phone for worsening glucose readings or for any low blood sugars which may warrant a change in d iabetes medication. Compliance is encouraged with medications and any followup testing/consults which may have been ordered. Orders: Orders AMB Hemoglobin A1c Today E11.59 - Type 2 diabetes mellitus with other circulatory complications Medications: Refilled dapagliflozin propanediol (Farxiga) 10 mg PO QAM 90 days 90 tabs 1RF glipizide ER 10 mg PO DAILY 90 tabs 1RF 90 days metformin 250 mg (1/2 x 500 mg) PO QAM 45 tabs 1RF 90 days dapagliflozin propanediol (Farxiga) 10 mg PO QAM 90 tabs 1RF 90 days Patient Instructions: Take 15 carb carbohydrate grams to treat a low sugar (3-4 glucose tablets, half a glass of juice or 15 carbohydrate grams of soft candy such as gummie snacks). Recheck your sugar in 15 minutes and re-treat again with 15 carbohydrate grams if low or still with symptoms. Do not drive a car or operate machinery if you do not know what your blood sugar is, if it is low or in excess of 300. The patient was counseled to achieve a target A1C of 7% (154 avg). Fasting blood sugars should be 90-130 in the morning and less than 180 two hours after meals. Reviewed the relationship between poor diabetic control and the development of complications. Check your feet daily looking for any signs of infection, drainage, redness, ulceration and seek medical attention if this occurs. Break in shoes gradually and do not wear open-toed shoes or walk stocking footed or barefooted. Sick day management reviewed. If you develop significant illness with vomiting or fever keep hydrated and temporarily stop metformin. Notify Endocrine Clinic if sugars are over 250. Stop metformin prior to surgery or tests in which dye is injected in the body. Coding Level of Care Code Est Pt Level 4 (83949) Complex EM visit Add On G2211 Diagnoses Type 2 diabetes mellitus with unspecified complications E11.8 Time Spent (min) 30 Comment Time spent reviewing labs/provider notes, face to face, chart doc
[2024-07-10 07:56] VITALS: BP 122/78; PULSE 99; O2SAT 96
[2024-07-10 08:04] LABS: Glucose, Whole Blood 188 mg/dL (60-115)
== END 2024-07-10 08:24 | disposition home or self-care (01) ==
LOC: HO.ENCR 07:52
PROVIDERS: PCP Family Medicine; Visit Provider Nurse Practitioner Adult Health
DX: E11.59 Type 2 diabetes mellitus with other circulatory complications (principal); E11.8 Type 2 diabetes mellitus with unspecified complications
CPT/HCPCS: 99214

== ENCOUNTER → 2024-07-10 07:52 | Outpatient (BNVA) | payer BC, SELFPAY | PROVIDERS: PCP Family Medicine; Visit Provider Nurse Practitioner Adult Health | DX: E11.8 Type 2 diabetes mellitus with unspecified complications (principal); Z79.84 Long term (current) use of oral hypoglycemic drugs | CPT/HCPCS: 82947; 83036 ==

== ENCOUNTER 2024-07-18 08:32 | Outpatient (AMB) | payer BC, SELFPAY ==
--- NOTE | 2024-07-18 08:57 | MHC.PC.OV ---
Vital Signs 07/18/24 09:02 Height 6 ft Weight 208 lb 6 oz BMI 28.3 BP 120/60 Blood Pressure Location Rt brachial Position Sitting Respiration 16 Pulse 96 Pulse Source Pulse Oximeter Temp 98.2 F Temp Source Oral Pulse Oximetry (%) 98 Oxygen Delivery Method Room Air Intake Visit Reasons: f/u diabetes, chronic conditions Intake Note: patient scheduled for dm and chronic conditions Systems Coordinator Required: No Allergies lisinopril Allergy (Intermediate, Verified 07/18/24 09:00) Dizziness hornet venom Allergy (Mild, Verified 07/18/24 09:00) Swelling tetracycline Adverse Reaction (Intermediate, Verified 07/18/24 09:00) Unconscious Medication List - Last Reconciled 07/18/24 by Jn Lacy MD arginine (L-arginine) 500 mg PO DAILY ascorbate calcium (vitamin C) 500 mg PO DAILY ashwagandha extract mg PO atorvastatin 40 mg PO DAILY 90 days cholecalciferol (vitamin D3) 25 mcg PO DAILY PRN citrulline (Pure L-Citrulline) 1.8 grams PO TID dapagliflozin propanediol (Farxiga) 10 mg PO QAM 90 days glipizide ER 10 mg PO DAILY 90 days losartan 25 mg PO DAILY 90 days magnesium citrate 100 mg PO DAILY metformin 250 mg (1/2 x 500 mg) PO QAM 90 days omeprazole 20 mg PO DAILY PRN pioglitazone (Actos) 15 mg PO DAILY 90 days shilajit mg PO Tobacco use date assessed: 09/20/23 Dental Screening Dental Screen Date: 08/09/23 HPI f/u diabetes, chronic conditions HPI Details 63 y/o male presents to f/u diabetes, chronic conditions. Last A1c 07/10/24 10.0%. He is on metformin 250mg, glipizide 10mg daily. Blood pressure today 120/60, 104p. PFSH Medical History DM type 2 causing vascular disease Routine physical examination Eosinophilia Elevated total protein MIGUEL (obstructive sleep apnea) SVT (supraventricular tachycardia) Atherosclerotic cardiovascular disease Surgical History Hx of knee surgery S/P CABG x 7 Family History Mother Diabetes Father Pancreatic cancer Brother CAD (coronary artery disease) ASHD (arteriosclerotic heart disease) Sister Breast cancer Sister Major depression Brother ASHD (arteriosclerotic heart disease) CAD (coronary artery disease) Social History Housing: House Alcohol intake: current Alcohol intake frequency: holidays/special occasions only Patient Tobacco Use Status: Former Tobacco user Years Smoked: 40 +/- e-Cigarette/Vaping Use: Never Used Second Hand Smoke Exposure: No service: No Current occupational status: employed Current occupation: [employer] Current occupational exposures/hazards: No Cognitive needs: No Hearing needs: No Vision needs: No Questionnaire Thrive Questionnaire Date Thrive assessed: 04/08/24 I am a: Patient What is your living situation today?: I choose not to answer this question Within the past 12 months, did the food you bought not last and you didn't have the money to get more?: I choose not to answer this question Within the past 12 months, did you worry whether your food would run out before you got money to buy more?: I choose not to answer this question Do you have trouble paying for medicines?: I choose not to answer this question Do you have trouble getting transportation to medical appointments?: I choose not to answer this question Do you have trouble paying your heating and electricity bill?: I choose not to answer this question Do you have trouble taking care of your child, family member or friend?: I choose not to answer this question Do you have trouble with day-to-day activities such as bathing, preparing meals, shopping, managing finances, etc.?: I choose not to answer this question Are you currently unemployed and looking for a job?: I choose not to answer this question Are you interested in more education?: I choose not to answer this question Please select the resources that you would like help with: None THRIVE Score: 0 HARINI-7 AMB Questionnaire HARINI-7 Date HARINI - 7 assessed: 08/09/23 Source: Developed by Drs. Yonny Workman, Grace Reyes, Christopher Smith and colleagues, with an educational catracho from [employer]. Review of Systems Const Denies chills, Denies fatigue, Denies fever(s), Denies headache(s) and Denies weakness ENT Denies dizziness and Denies headache(s) Card Denies dyspnea Resp Denies cough, Denies dyspnea, Denies wheezing and Denies other (shortness of breath) Musc Denies numbness and Denies tingling Neuro Denies dizziness, Denies headache(s), Denies numbness, Denies tingling and Denies weakness Psych Denies anxiety and Denies depression Endo Denies fatigue Aller/Immun Denies wheezing Physical exam (Primary Care) Vital Signs: Last Vital Signs Temp 98.2 F 07/18/24 09:02 Pulse 104 H 07/18/24 09:02 Resp 16 07/18/24 09:02 BP 120/60 07/18/24 09:02 Pulse Ox 98 07/18/24 09:02 Oxygen Delivery Method Room Air 07/18/24 09:02 BMI result Body Mass Index 28.3 Tobacco/Smoking Status: Tobacco use Status Tobacco use date assessed 09/20/23 07/18/24 08:59 Patient Tobacco Use Status Former Tobacco user 07/18/24 08:59 e-Cigarette/Vaping Use Never Used 07/18/24 08:59 Thrive Assessment: Date of Thrive Assessment Date Thrive assessed 04/08/24 07/18/24 08:59 Const General: well developed; No acute distress Nutritional Appearance: well nourished Orientation/consciousness: patient oriented x3 HENMT Head: Yes normocephalic and Yes atraumatic Eyes General: appearance normal, both eyes and all related structures Pupils: Equal, round and reactive pupils present EOM: EOMs intact bilaterally Resp Effort & Inspection: normal respiratory effort Auscultation: clear to auscultation bilaterally Cardio Rate: regular rate Rhythm: regular rhythm Heart sounds: S1 normal heart sound present, S2 normal heart sound present, no gallops, no murmurs and no rubs Neuro General: patient oriented x3 and gait normal Cranial nerves: Yes Equal, round and reactive pupils present Psych Affect: normal affect Coding Level of Care Code Est Pt Level 4 (66330) Diagnoses DM type 2 causing vascular disease E11.59 Hypertension I10 Coronary artery disease I25.10 Assessment & Plan Assessment & Plan (1) DM type 2 causing vascular disease: Code(s): E11.59 - Type 2 diabetes mellitus with other circulatory complications Category: Medical Plan: Recently?seen?by?endocrinology?and?has?follow-up?appointments. His?A1c?was 10.0%?last?week. Spoke?to?patient?again?today. Will?increase?Actos?from?15?mg?daily?to?30?mg?daily. He?has?had?some?difficulty tolerating?metformin?greater?than?250?mg?daily. We?discussed?having?him?continue?250?mg?in?the?morning?and?he?will?try?to?get?as?consistent?as?he?can?with?another?250?mg?in?the?evening. Continue?glipizide?and?Farxiga Will?continue?to?follow?along?with?endocrinology (2) Hypertension: Code(s): I10 - Essential (primary) hypertension Category: Medical Plan: Blood?pressure?is?controlled.??Goal?is?less?than?130/80 Continue Current?medication (3) Coronary artery disease: Code(s): I25.10 - Atherosclerotic heart disease of [place] coronary artery without angina pectoris Category: Medical Plan: Stable Medications: Changed From pioglitazone (Actos) 15 mg PO DAILY 90 days 90 tabs 3RF E11.59 - Type 2 diabetes mellitus with other circulatory complications To pioglitazone 30 mg PO DAILY 90 days 90 tabs 3RF E11.59 - Type 2 diabetes mellitus with other circulatory complications From metformin 250 mg (1/2 x 500 mg) PO QAM 90 days 45 tabs 1RF To metformin 250 mg (1/2 x 500 mg) PO BID 90 days 90 tabs 1RF
[2024-07-18 09:02] VITALS: BP 120/60; PULSE 96; RESP 16; TEMP 36.8; O2SAT 98; BMI 28.3
== END 2024-07-18 09:47 | disposition home or self-care (01) ==
LOC: HO.HMCFM 08:33
PROVIDERS: PCP Family Medicine; Visit Provider Family Medicine
DX: E11.59 Type 2 diabetes mellitus with other circulatory complications (principal); I10 Essential (primary) hypertension; I25.10 Atherosclerotic heart disease of native coronary artery without angina pectoris

== ENCOUNTER → 2024-07-18 08:32 | Outpatient (BNVA) | payer BC, SELFPAY | PROVIDERS: PCP Family Medicine; Visit Provider Family Medicine | DX: Z13.89 Encounter for screening for other disorder (principal) ==

== ENCOUNTER 2024-10-07 08:17 | Outpatient (AMB) | payer BC, SELFPAY ==
--- NOTE | 2024-10-07 08:18 | A.OFFVIS_ITS ---
Vital Signs 10/07/24 08:20 10/07/24 09:01 Height 6 ft Weight 198 lb 6.656 oz BMI 26.9 BP 162/82 H 150/78 H Blood Pressure Location Rt brachial Position Sitting Pulse 92 Pulse Source Pulse Oximeter Pulse Oximetry (%) 96 Oxygen Delivery Method Room Air Intake Visit Reasons: T2DM Intake Note: Patient present today to follow up on Type 2 Diabetes Mellitus. Last seen by Betsy Cortez on 07/10/24. Last Diabetic Eye exam: OVER DUE Last Podiatry Visit: Does not see a Roll Bucker HgA1C: 7.8%, 10/07/2024 Random Glucose: 126 mg/dL [facility] [employer] Required: No Accompanied by: Self / Same As Patient Allergies lisinopril Allergy (Intermediate, Verified 10/07/24 08:20) Dizziness hornet venom Allergy (Mild, Verified 10/07/24 08:20) Swelling tetracycline Adverse Reaction (Intermediate, Verified 10/07/24 08:20) Unconscious HPI Comments Details: This is a 64-year-old male with a past medical history of coronary artery disease, hypertension, hyperlipidemia, microalbuminuria, type 2 diabetes and SVT presenting for diabetic management. This is my 1st time seeing him in the endocrinology department. He was initially diagnosed around 2020. Previous notes indicate he had a lower A1c when he was taking Trulicity which was stopped due to availability, and he continues to decline going on any additional injectables or restarting Trulicity due to his version of needles. Hemoglobin A1c today 10/07/2024 7.8%. Current medications: Metformin 250 mg twice a day, Farxiga 10 mg daily, glipizide extended release 10 mg daily and Actos 30 mg daily. Patient says he is unable to tolerate higher doses of metformin as he believes it causes erectile dysfunction. He does not check his blood sugar readings, and he continues to decline CGM and glucometer against medical advice. He has no symptoms of low sugars. He declines scheduling a diabetic eye exam today against recommendations. Complications: Microalbuminuria, coronary artery disease, mild neuropathy in his feet Patient has cut back on his sugar and carbohydrate intake. He has had 5 or 6 candy bars within the past 3 months. He you state them all the time. He is still drinking soda, but he is having less on a daily basis and drinking more water. Hyperlipidemia is treated with atorvastatin 40 mg daily. Hypertension is treated with losartan 25 mg daily. His blood pressure is elevated today but improved when I rechecked it. Patient says he is nervous today with losartan 25 mg daily. He did not take his medication today. He also says he has nervous because he was seeing a new provider today. His last re corded blood pressure prior to today in July was 120/60. ROS: Constitutional: No unexplained weight loss, fever, chills, fatigue or night sweats. Eyes: No vision changes, blurry vision, double vision, eye pain, eye redness, eye discharge. Respiratory: No shortness of breath Cardiovascular: No chest pain, chest pressure or chest discomfort. No palpitations or pedal edema. Gastrointestinal: No anorexia, nausea, vomiting or diarrhea. No abdominal pain Neurologic: No headache, dizziness, syncope. Intermittent tingling in his toes. Endocrine: No cold or heat intolerance. No polyuria or polydipsia. Physical exam: Constitutional: Alert, in no distress. Eyes: Pupils are equal, round and reactive to light. Extraocular muscles intact. Neck: Supple, Full range of motion. No lymphadenopathy. Respiratory: Clear to auscultation. Cardiovascular: S1 S2 regular. No murmurs Neurologic: No focal neurological deficits. Extremities: Warm and well perfused. No clubbing, cyanosis or edema. Psychiatric: Normal mood and affect [facility] Medical History DM type 2 causing vascular disease Routine physical examination Eosinophilia Elevated total protein MIGUEL (obstructive sleep apnea) SVT (supraventricular tachycardia) Atherosclerotic cardiovascular disease Surgical History Hx of knee surgery S/P CABG x 7 Family History Mother Diabetes Father Pancreatic cancer Brother CAD (coronary artery disease) ASHD (arteriosclerotic heart disease) Sister Breast cancer Sister Major depression Brother ASHD (arteriosclerotic heart disease) CAD (coronary artery disease) Social History Housing: House Alcohol intake: current Alcohol intake frequency: holidays/special occasions only Patient Tobacco Use Status: Former Tobacco user Years Smoked: 40 +/- e-Cigarette/Vaping Use: Never Used Second Hand Smoke Exposure: No service: No Current occupational status: employed Current occupation: [employer] Current occupational exposures/hazards: No Cognitive needs: No Hearing needs: No Vision needs: No Physical Exam Vital Signs: Last Vital Signs Pulse 92 10/07/24 08:20 BP 162/82 H 10/07/24 08:20 Pulse Ox 96 10/07/24 08:20 Oxygen Delivery Method Room Air 10/07/24 08:20 BMI result Body Mass Index 26.9 Results Reviewed Results Reviewed: Laboratory Tests 10/22/23 04/19/24 04/19/24 07:48 07:17 07:21 Creatinine 0.95 Estimated GFR > 60 Hgb A1c (Clinic) AST 27 ALT 33 Triglycerides 239 H Cholesterol 147 LDL Cholesterol, Calc 63 HDL Cholesterol 37 L TSH 0.95 Urine Creatinine 47.89 Urine Microalbumin 41.0 Microalb/Creat Ratio 85.6 H 07/10/24 08:02 Creatinine Estimated GFR Hgb A1c (Clinic) 10.0 H AST ALT Triglycerides Cholesterol LDL Cholesterol, Calc HDL Cholesterol TSH Urine Creatinine Urine Microalbumin Microalb/Creat Ratio Assessment & Plan Assessment & Plan (1) Type 2 diabetes mellitus with unspecified complications: Code(s): E11.8 - Type 2 diabetes mellitus with unspecified complications Category: Medical Plan: In summary this is a 64-year-old male with suboptimally controlled type 2 diabetes with some resistance to treatment despite known complications. He is adamant that he will not start any injectable medications, and he continues to refuse to monitor his blood sugar or initiate a glucose sensor against medical advice. We discussed dangers of hypo and hyperglycemia and risk of seizures, DKA and . I asked if he would keep a glucometer on hand for emergencies, but he declined it. We reviewed treatment of hypoglycemia and he was provided with written instructions. He declined prescription for glucose tablets and glucose gel. I recommended a diabetic eye exam. I recommended adjusting his oral medications to target A1c less than 7%. He has a option of increasing glipizide or Actos or trying extended release metformin at a higher dosage to see if he is able to tolerate it. He declined these recommendations. He would like to see if there is a cheaper alternative to Farxiga so I submitted Jardiance to his pharmacy. I reviewed potential side effects including infections and DONALD which can be very serious. Advised to check renal function 10 days after initiating the medication if it is more affordable. Otherwise he can continue Farxiga 10 mg daily. The patient's blood pressure is suboptimal today which he attributed to not taking his medication and nervousness at the appointment. He has an appointment in primary care later this month at which time his blood pressure can be rechecked. Current medication regimen: Metformin 250 mg twice a day Jardiance 10 mg daily Glipizide extended release 10 mg daily Actos 30 mg daily Plan Follow up in 3 months for type 2 diabetes Orders: Orders AMB Hemoglobin A1c Today E11.8 - Type 2 diabetes mellitus with unspecified complications Creatinine Today E11.9 - Type 2 diabetes mellitus without complications, E78.5 - Hyperlipidemia, unspecified, I10 - Essential (primary) hypertension Alanine Aminotransferase Today E78.5 - Hyperlipidemia, unspecified, I10 - Essential (primary) hypertension Aspartate Amino Transferase Today E78.5 - Hyperlipidemia, unspecified, I10 - Essential (primary) hypertension Lipid Panel Today E78.5 - Hyperlipidemia, unspecified, I10 - Essential (primary) hypertension Medications: New empagliflozin (Jardiance) Replaces Farxiga. 10 mg PO QAM 30 tabs 0RF Discontinued dapagliflozin propanediol (Farxiga) Discontinued Reason: Doctor's Order 10 mg PO QAM 90 days 90 tabs 1RF Patient Instructions: When you get Jardiance 10 mg start 1 tablet daily and stop Farxiga. Please have lab work done 10 days after starting the medication. If you experience low blood sugar (70), treat this by eating a chewable fruit candy like skittles or jelly beans (about 8 pieces), 4 ounces (1/2 cup) of fruit juice (not diet), 1 tablespoon of honey or 4 glucose tablets. If your blood sugar is under 55, take double the amount of one of the above. Recheck your blood sugar in 15 minutes. Coding Level of Care Code Tele Est Pt Level 4 (74257) Complex EM visit Add On G2211 Diagnoses Type 2 diabetes mellitus with unspecified complications E11.8
[2024-10-07 08:20] VITALS: BP 162/82; PULSE 92; O2SAT 96; BMI 26.9
[2024-10-07 08:30] LABS: Glucose, Whole Blood 126 mg/dL (60-115)
[2024-10-07 09:01] VITALS: BP 150/78
== END 2024-10-07 09:04 | disposition home or self-care (01) ==
LOC: HO.ENCR 08:18
PROVIDERS: PCP Family Medicine; Visit Provider Physician Assistant Medical
DX: E11.8 Type 2 diabetes mellitus with unspecified complications (principal)

== ENCOUNTER → 2024-10-07 08:17 | Outpatient (BNVA) | payer BC, SELFPAY | PROVIDERS: PCP Family Medicine; Visit Provider Physician Assistant Medical | DX: E11.9 Type 2 diabetes mellitus without complications (principal); I10 Essential (primary) hypertension; E78.5 Hyperlipidemia, unspecified | CPT/HCPCS: 82947 ==

== ENCOUNTER 2024-10-22 08:15 | Outpatient (AMB) | payer BC, SELFPAY ==
--- OUTSIDE RECORDS SUMMARY | 2024-10-22 08:27 | XMS_ITS | Clinical Summary ---
Author Organization [facility] Address [address] [phone] Phone Care Team Providers Care Gum Scoring Machine Operator Name Role Phone Jn Lacy MD Primary Care Provider Social History Tobacco Use Types Packs/Day Years Used Date Smoking Tobacco: Never Assessed Education Answer Date Recorded Are you interested in more education? Not on tutu e 10/11/2022 Are you concerned about learning? Not on file 10/11/2022 No 10/11/2022 No 10/11/2022 Digital Access Answer Date Recorded No 10/11/2022 No 10/11/2022 Reliable internet access at home? Not on file 10/11/2022 Device with a working camera? Not on file Sex and Gender Information Value Date Recorded Sex Assigned at Not on file Legal Sex Male 11:29 AM EDT Gender Identity Not on file Sexual Orientation Not on file Plan of Treatment Not on file Medical Devices Not on file Insurance [facility] [address] [place] [address] [facility] Care Teams Gum Scoring Machine Operator Relationship Specialty Start Date End Date Jn Lacy MD [address] [place] [id number] PCP - General Family Medicine 10/11/22 Additional Source Comments The information contained in this document represents components of the legal health record. It is not the complete legal health record.[facility]
--- NOTE | 2024-10-22 08:31 | MHC.PC.OV ---
Vital Signs 10/22/24 08:40 Height 6 ft Weight 200 lb 8 oz BMI 27.2 BP 118/70 Blood Pressure Location Lt brachial Position Sitting Respiration 16 Pulse 88 Pulse Source Pulse Oximeter Temp 98.0 F Temp Source Oral Pulse Oximetry (%) 96 Oxygen Delivery Method Room Air Intake Visit Reasons: f/u diabetes - see comments Intake Note: Patient is scheduled for dm follow up patients last A1C is 7.8 Nurse Emergency Required: No Allergies lisinopril Allergy (Intermediate, Verified 10/22/24 08:37) Dizziness hornet venom Allergy (Mild, Verified 10/22/24 08:37) Swelling tetracycline Adverse Reaction (Intermediate, Verified 10/22/24 08:37) Unconscious Medication List - Last Reconciled 10/22/24 by Jn Lacy MD arginine (L-arginine) 500 mg PO DAILY ascorbate calcium (vitamin C) 500 mg PO DAILY ashwagandha extract mg PO atorvastatin 40 mg PO DAILY 90 days cholecalciferol (vitamin D3) 25 mcg PO DAILY PRN citrulline (Pure L-Citrulline) 1.8 grams PO TID glipizide ER 10 mg PO DAILY 90 days losartan 25 mg PO DAILY 90 days magnesium citrate 100 mg PO DAILY mecobalamin (vitamin B12) mcg PO metformin 250 mg (1/2 x 500 mg) PO BID 90 days omeprazole 20 mg PO DAILY PRN pioglitazone 30 mg PO DAILY 90 days shilajit mg PO Tobacco use date assessed: 09/20/23 Dental Screening Dental Screen Date: 08/09/23 HPI f/u diabetes - see comments HPI Details 64 y/o male presents to f/u diabetes, chronic conditions. Last A1c 07/10/24 10.0% which improved to 7.8%. He is on glipizide 10mg, metformin 250mg b.i.d. Blood pressure today 118/70, 88p. He is on losartan 25mg daily. Continues taking artovastatin for his lipids. Report songoing knee pain. HPI Comments History of Present Illness Details Documentation assistance for Jn Lacy MD, was provided by Barrie Matos,? Solution Specialist on 10/22/2024 at 9:21 AM EST. I, Dr. Lacy, have read, observed, and verified documentation. ?? [facility] Medical History DM type 2 causing vascular disease Routine physical examination Eosinophilia Elevated total protein MIGUEL (obstructive sleep apnea) SVT (supraventricular tachycardia) Atherosclerotic cardiovascular disease Surgical History Hx of knee surgery S/P CABG x 7 Family History Mother Diabetes Father Pancreatic cancer Brother CAD (coronary artery disease) ASHD (arteriosclerotic heart disease) Sister Breast cancer Sister Major depression Brother ASHD (arteriosclerotic heart disease) CAD (coronary artery disease) Social History Housing: House Alcohol intake: current Alcohol intake frequency: holidays/special occasions only Patient Tobacco Use Status: Former Tobacco user Years Smoked: 40 +/- e-Cigarette/Vaping Use: Never Used Second Hand Smoke Exposure: No service: No Current occupational status: employed Current occupation: [employer] Current occupational exposures/hazards: No Cognitive needs: No Hearing needs: No Vision needs: No Questionnaire Thrive Questionnaire Date Thrive assessed: 04/08/24 I am a: Patient What is your living situation today?: I choose not to answer this question Within the past 12 months, did the food you bought not last and you didn't have the money to get more?: I choose not to answer this question Within the past 12 months, did you worry whether your food would run out before you got money to buy more?: I choose not to answer this question Do you have trouble paying for medicines?: I choose not to answer this question Do you have trouble getting transportation to medical appointments?: I choose not to answer this question Do you have trouble paying your heating and electricity bill?: I choose not to answer this question Do you have trouble taking care of your child, family member or friend?: I choose not to answer this question Do you have trouble with day-to-day activities such as bathing, preparing meals, shopping, managing finances, etc.?: I choose not to answer this question Are you currently unemployed and looking for a job?: I choose not to answer this question Are you interested in more education?: I choose not to answer this question Please select the resources that you would like help with: None THRIVE Score: 0 HARINI-7 AMB Questionnaire HARINI-7 Date HARINI - 7 assessed: 08/09/23 Source: Developed by Drs. Yonny Workman, Grace Reyes, Christopher Smith and colleagues, with an educational catracho from [employer]. Review of Systems Const Denies chills, Denies fatigue, Denies fever(s), Denies headache(s) and Denies weakness ENT Denies dizziness and Denies headache(s) Card Denies dyspnea Resp Denies cough, Denies dyspnea, Denies wheezing and Denies other (shortness of breath) Musc Denies numbness and Denies tingling Neuro Denies dizziness, Denies headache(s), Denies numbness, Denies tingling and Denies weakness Psych Denies anxiety and Denies depression Endo Denies fatigue Aller/Immun Denies wheezing Physical exam (Primary Care) Vital Signs: Last Vital Signs Temp 98.0 F 10/22/24 08:40 Pulse 88 10/22/24 08:40 Resp 16 10/22/24 08:40 BP 118/70 10/22/24 08:40 Pulse Ox 96 10/22/24 08:40 Oxygen Delivery Method Room Air 10/22/24 08:40 BMI result Body Mass Index 27.2 Tobacco/Smoking Status: Tobacco use Status Tobacco use date assessed 09/20/23 10/22/24 08:33 Patient Tobacco Use Status Former Tobacco user 10/22/24 08:33 e-Cigarette/Vaping Use Never Used 10/22/24 08:33 Thrive Assessment: Date of Thrive Assessment Date Thrive assessed 04/08/24 10/22/24 08:33 Const General: well developed; No acute distress Nutritional Appearance: well nourished Orientation/consciousness: patient oriented x3 HENMT Head: Yes normocephalic and Yes atraumatic Eyes General: appearance normal, both eyes and all related structures Pupils: Equal, round and reactive pupils present EOM: EOMs intact bilaterally Resp Effort & Inspection: normal respiratory effort Auscultation: clear to auscultation bilaterally Cardio Rate: regular rate Rhythm: regular rhythm Heart sounds: S1 normal heart sound present, S2 normal heart sound present, no gallops, no murmurs and no rubs Neuro General: patient oriented x3 and gait normal Cranial nerves: Yes Equal, round and reactive pupils present Psych Affect: normal affect Coding Level of Care Code Est Pt Level 5 (90938) Diagnoses Hypertension I10 Coronary artery disease I25.10 DM type 2 causing vascular disease E11.59 Hyperlipidemia E78.5 Knee pain M25.569 Assessment & Plan Assessment & Plan (1) Hypertension: Code(s): I10 - Essential (primary) hypertension Category: Medical Plan: 64-year-old male with coronary artery disease Blood pressure well controlled. Goal is less than 130/80 Continue losartan Work at diet low in salt sodium Watch weight (2) Coronary artery disease: Code(s): I25.10 - Atherosclerotic heart disease of squaxin coronary artery without angina pectoris Category: Medical Plan: S/p CABG x7 He continues atorvastatin Working on good blood sugar control. Had been followed by cardiology but has not been seen recently. Recommend he follow-up with Cardiology annually. (3) DM type 2 causing vascular disease: Code(s): E11.59 - Type 2 diabetes mellitus with other circulatory complications Category: Medical Plan: A1c improved from 10.0-7.8 earlier this month. He is taking medications as prescribed; has some extra Jardiance and will finish this up before switching back to [facility] which he has decided to use regularly. Continue diet low in sugars and starches and watch weight Follow-up with endocrinology No medication changes today Briefly discussed Lantus if he is unable to get to goal of less than 7.0 which I strongly recommended due to coronary artery disease Has not seen an eye doctor in over a year and I recommended he call for an appointment. (4) Hyperlipidemia: Code(s): E78.5 - Hyperlipidemia, unspecified Category: Medical Plan: Taking atorvastatin as prescribed. Watching fat and cholesterol in diet History of coronary artery disease; LDL goal is less than 70 Recheck lipids (5) Knee pain: Code(s): M25.569 - Pain in unspecified knee Category: Medical Plan: Left knee pain after contusion Improving slowly Advised a ice and heat He is using [place] pain that He will let me know if progress Stalls. Orders: Orders Lipid Panel 10/22/24 I25.10 - Atherosclerotic heart disease of squaxin coronary artery without angina pectoris, Z00.00 - Encounter for general adult medical examination without abnormal findings Comprehensive [place]. Panel Fast 10/22/24 I25.10 - Atherosclerotic heart disease of squaxin coronary artery without angina pectoris, Z00.00 - Encounter for general adult medical examination without abnormal findings Microalbumin, Random (w Creat) 10/22/24 I10 - Essential (primary) hypertension
[2024-10-22 08:40] VITALS: BP 118/70; PULSE 88; RESP 16; TEMP 36.7; O2SAT 96; BMI 27.2
== END 2024-10-22 09:19 | disposition home or self-care (01) ==
LOC: HO.HMCFM 08:17
PROVIDERS: PCP Family Medicine; Visit Provider Family Medicine
DX: I25.10 Atherosclerotic heart disease of native coronary artery without angina pectoris (principal); I10 Essential (primary) hypertension; E11.59 Type 2 diabetes mellitus with other circulatory complications; E78.5 Hyperlipidemia, unspecified; M25.569 Pain in unspecified knee

== ENCOUNTER 2024-12-10 08:24 | Outpatient (AMB) | payer BC, SELFPAY ==
[2024-12-10 08:35] VITALS: BMI 26.8
--- NOTE | 2024-12-10 08:35 | A.OFFVIS_ITS ---
VS Expanded 12/10/24 08:35 12/10/24 08:44 Height 6 ft 6 ft Weight 197 lb 12.074 oz 198 lb BMI 26.8 26.9 Intake Visit Reasons: T2DM Allergies lisinopril Allergy (Intermediate, Verified 10/22/24 08:37) Dizziness hornet venom Allergy (Mild, Verified 10/22/24 08:37) Swelling tetracycline Adverse Reaction (Intermediate, Verified 10/22/24 08:37) Unconscious Nutrition Presentation Details: Pt presents for MNT f/u T2DM Pt reports working on reducing on pastries/cookies and similar foods Has 3 meals/day B: breakfast sand eggs/sausge/cheese and mushroom on white bread, water/coffee no sugar added L: sand or veg pizza, low sugar beverage d: includes fish twice a week , variety of vegetables and rice snack on fruits, nuts, mindfully reducing on pastries beverages: water (+ low sugar flavor mix) , 42-60 oz/d physical activity: none additional to ADL food frequency fish: 2x/wk dairy: 2-3/d fruits: 0-1/ Pt takes a variety of vitamin on and off - see med list etoh/smoking: denies AWT-Krvlgzv-Ov.Jeor Equation Height: 6 ft Weight: 198 lb Resting Metabolic Rate: 1720.49 Calculated Activity Level: Mild Activity Calories Needed to Maintain Weight: 2365.67 PFSH Medical History DM type 2 causing vascular disease Routine physical examination Eosinophilia Elevated total protein MIGUEL (obstructive sleep apnea) SVT (supraventricular tachycardia) Atherosclerotic cardiovascular disease Surgical History Hx of knee surgery S/P CABG x 7 Family History Mother Diabetes Father Pancreatic cancer Brother CAD (coronary artery disease) ASHD (arteriosclerotic heart disease) Sister Breast cancer Sister Major depression Brother ASHD (arteriosclerotic heart disease) CAD (coronary artery disease) Social History Housing: House Alcohol intake: current Alcohol intake frequency: holidays/special occasions only Patient Tobacco Use Status: Former Tobacco user Years Smoked: 38 +/- e-Cigarette/Vaping Use: Never Used Second Hand Smoke Exposure: No service: No Current occupational status: employed Current occupation: [employer] Current occupational exposures/hazards: No Cognitive needs: No Hearing needs: No Vision needs: No Assessment & Plan Assessment & Plan (1) Type 2 diabetes mellitus with unspecified complications: Code(s): E11.8 - Type 2 diabetes mellitus with unspecified complications Category: Medical Plan: Wt: 89 Kg (12/24 ), 93 kg (06/24),90kg(12/25) Est kcal needs as per MSJ: 2400 (40% carb, 30% protein/fat) Est fluid needs as per 25-30 ml/d: 2700 Est prot per day as per 1 g/kg bw: 89 Recommend fiber intake : 8-10 g per day and gradually increase to 25-28 g per day for women and 35-38 g for men or as tolerated Recommend sodium intake per day : less than 2000 mg Educated patient on: ( R = reviewed V = verbalizes understanding N/R = needs review N/A = not applicable * Food sources of carbohydrate, adequate serving sizes and its role in various health conditions: R ,V * Differences between complex carbohydrates a simple carbohydrates, role of fiber in diet: R V * Lean protein sources of foods: R V * Differences between types of fats and role in diet (mono on saturated fat fatty acids, saturated fatty acids, trans fats): R V * Food sources of sodium in salt and healthy modifications for heart health in kidney health: R V * Vitamins and minerals: R V * Healthy plate method concept: R V * Physical activity: Benefits a precaution: R V * Hypoglycemia protocol (rule of 15): R , V * Dietary prevention of Hyperglycemia: R V Patient Instructions: Include foods with proboitic and prebiotic (kefir, yogurts, kimchi, legumes, non starchy vegetables) Watch on your total carbohydrate intake per day (aim at less than 240 g distributed throughout the day) Consider monitoring your blood sugar at least 3 times a week, alternating between fasting and 2 hours after a meal for self assessment (fasting blood sugar goal less than 130 and 2 hours after any meal less than 180 ) Keep hydrated by having water with meals/snack and whenever feeling thirsty Coding Level of Care Code Nutr Indiv Subseq (88175) Diagnoses Type 2 diabetes mellitus with unspecified complications E11.8 Time Spent (min) 30
[2024-12-10 08:44] VITALS: BMI 26.9
--- OUTSIDE RECORDS SUMMARY | 2024-12-10 09:39 | XMS_ITS | Clinical Summary ---
Author Organization [facility] Address [address] [phone] Phone Care Team Providers Care Wall Covering Contractor Name Role Phone Jn Lacy MD Primary [...] file Medical Devices Not on file Insurance [facility] [place] [address] [place] [address] [facility] Care Teams Wall Covering Contractor Relationship Specialty Start Date End Date Jn Lacy MD [address] [place] [id number] PCP - General Family Medicine 10/11/22 Additional Source Comments The information contained in this document represents components of the legal health record. It is not the complete legal health record.[facility]
== END 2024-12-10 09:44 | disposition home or self-care (01) ==
LOC: HO.ENCR 08:25
PROVIDERS: PCP Family Medicine; Visit Provider Dietitian, Registered
DX: E11.8 Type 2 diabetes mellitus with unspecified complications (principal)

== ENCOUNTER → 2024-12-10 08:24 | Outpatient (BNVA) | payer BC, SELFPAY | PROVIDERS: PCP Family Medicine; Visit Provider Dietitian, Registered | DX: E11.8 Type 2 diabetes mellitus with unspecified complications (principal) | CPT/HCPCS: 97803 ==

== ENCOUNTER 2025-01-06 08:18 | Outpatient (AMB) | payer BC, MEDICARE, SELFPAY ==
[2025-01-06 08:24] VITALS: BP 134/68; PULSE 68; O2SAT 98; BMI 27.0
--- NOTE | 2025-01-06 08:24 | MHC.OFFVIS ---
Vital Signs 01/06/25 08:24 Height 6 ft Weight 198 lb 13.711 oz BMI 27.0 BP 134/68 Blood Pressure Location Rt brachial Position Sitting Pulse 68 Pulse Source Pulse Oximeter Pulse Oximetry (%) 98 Oxygen Delivery Method Room Air Intake Visit Reasons: T2DM Intake Note: Patient present today to follow up on Type 2 Diabetes Mellitus. 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 Required: No Accompanied by: Self / Same As Patient Allergies lisinopril Allergy (Intermediate, Verified 01/06/25 08:25) Dizziness hornet venom Allergy (Mild, Verified 01/06/25 08:25) Swelling tetracycline Adverse Reaction (Intermediate, Verified 01/06/25 08:25) Unconscious Medication List - Last Reconciled 01/06/25 by CARLOS Damon arginine (L-arginine) 500 mg PO DAILY ascorbate calcium (vitamin C) 500 mg PO DAILY ashwagandha extract mg PO atorvastatin 40 mg PO DAILY 90 days cholecalciferol (vitamin D3) 25 mcg PO DAILY PRN citrulline (Pure L-Citrulline) 1.8 grams PO TID dapagliflozin propanediol (Farxiga) 10 mg PO DAILY glipizide ER 10 mg PO DAILY 90 days losartan 25 mg PO DAILY 90 days magnesium citrate 100 mg PO DAILY mecobalamin (vitamin B12) mcg PO metformin 250 mg (1/2 x 500 mg) PO BID 90 days omeprazole 20 mg PO DAILY PRN pioglitazone 30 mg PO DAILY 90 days shilajit mg PO HPI Comments Details: This is a 64-year-old male with a past medical history of coronary artery disease, hypertension, hyperlipidemia, microalbuminuria, type 2 diabetes and SVT presenting for diabetic management. He was initially diagnosed around 2020. Previous notes indicate he had a lower A1c when he was taking Trulicity which was stopped due to availability, and he continues to decline going on any additional injectables or restarting Trulicity due to his version of needles. Hemoglobin A1c today 01/06/2025 is 7.5% down from 7.8%. Current medications: Metformin 250 mg twice a day, Farxiga 10 mg daily, glipizide extended release 10 mg daily and Actos 30 mg daily. Patient says he is unable to tolerate higher doses of metformin as he believes it causes erectile dysfunction. He does not check his blood sugar readings, and he continues to decline CGM and glucometer against medical advice. He has no symptoms of low sugars. He declines scheduling a diabetic eye exam today against recommendations. He met with a dietitian this month. He has continued to work on his diet. He is eating much less sugar. He limits portion sizes of ice cream. He is drinking a lot more water rather than soda. He is not exercising. Complications: Microalbuminuria, coronary artery disease, mild neuropathy in his feet Hyperlipidemia is treated with atorvastatin 40 mg daily. Hypertension is treated with losartan 25 mg daily. ROS: Constitutional: No unexplained weight loss, fever, chills, fatigue or night sweats. Eyes: No vision changes, blurry vision, double vision, eye pain, eye redness, eye discharge. Respiratory: No shortness of breath Cardiovascular: No chest pain, chest pressure or chest discomfort. No palpitations or pedal edema. Gastrointestinal: No anorexia, nausea, vomiting or diarrhea. No abdominal pain Neurologic: No headache, dizziness, syncope. Intermittent tingling in his toes. Endocrine: No cold or heat intolerance. No polyuria or polydipsia. Physical exam: Constitutional: Alert, in no distress. Eyes: Pupils are equal, round and reactive to light. Extraocular muscles intact. Neck: Supple, Full range of motion. No lymphadenopathy. Respiratory: Clear to auscultation. Cardiovascular: S1 S2 regular. No murmurs Extremities: No lower extremity is team visible on exam Feet: Declined foot exam. [facility] Medical History DM type 2 causing vascular disease Routine physical examination Eosinophilia Elevated total protein MIGUEL (obstructive sleep apnea) SVT (supraventricular tachycardia) Atherosclerotic cardiovascular disease Surgical History Hx of knee surgery S/P CABG x 7 Family History Mother Diabetes Father Pancreatic cancer Brother CAD (coronary artery disease) ASHD (arteriosclerotic heart disease) Sister Breast cancer Sister Major depression Brother ASHD (arteriosclerotic heart disease) CAD (coronary artery disease) Social History Housing: House Alcohol intake: current Alcohol intake frequency: holidays/special occasions only Patient Tobacco Use Status: Former Tobacco user Years Smoked: 40 +/- e-Cigarette/Vaping Use: Never Used Second Hand Smoke Exposure: No service: No Current occupational status: employed Current occupation: [employer] Current occupational exposures/hazards: No Cognitive needs: No Hearing needs: No Vision needs: No Physical Exam Vital Signs: Last Vital Signs Pulse 68 01/06/25 08:24 BP 134/68 01/06/25 08:24 Pulse Ox 98 01/06/25 08:24 Oxygen Delivery Method Room Air 01/06/25 08:24 BMI result Body Mass Index 27.0 Results AMB Hemoglobin A1c AMB Hemoglobin A1c 7.5 % Last Edit by EVELYN May on 01/06/25 08:40 Results Reviewed Results Reviewed: Laboratory Last Values Glucose (Clinic) 97 mg/dL (60-115) 01/06/25 08:29 Hgb A1c (Clinic) 7.5 % (4.0-6.0) H 01/06/25 08:32 Laboratory Tests 10/22/23 04/19/24 04/19/24 07:48 07:17 07:21 Creatinine 0.95 Estimated GFR > 60 Hgb A1c (Clinic) AST 27 ALT 33 Triglycerides 239 H Cholesterol 147 LDL Cholesterol, Calc 63 HDL Cholesterol 37 L TSH 0.95 Urine Creatinine 47.89 Urine Microalbumin 41.0 Microalb/Creat Ratio 85.6 H 07/10/24 08:02 Creatinine Estimated GFR Hgb A1c (Clinic) 10.0 H AST ALT Triglycerides Cholesterol LDL Cholesterol, Calc HDL Cholesterol TSH Urine Creatinine Urine Microalbumin Microalb/Creat Ratio Assessment & Plan Assessment & Plan (1) Type 2 diabetes mellitus with unspecified complications: Code(s): E11.8 - Type 2 diabetes mellitus with unspecified complications Category: Medical Plan: In summary this is a 64-year-old male with suboptimally controlled type 2 diabetes with some resistance to treatment despite known complications. He continues to decline injectable medications, changes to his current medication regimen, CGM and fingerstick glucometer. We discussed dangers of hypo and hyperglycemia and risk of seizures, DKA and . I asked if he would keep a glucometer on hand for emergencies, but he declined it. We reviewed treatment of hypoglycemia and he was provided with written instructions. He declined prescription for glucose tablets and glucose gel. I recommended a diabetic eye exam. I recommended adjusting his oral medications to target A1c less than 7%. He has a option of increasing glipizide or Actos or trying extended release metformin at a higher dosage to see if he is able to tolerate it. He declined these recommendations. He will continue losartan for hypertension and atorvastatin for hyperlipidemia. He agreed to have his lab work done today. Current medication regimen: Metformin 250 mg twice a day Farxiga 10 mg daily Glipizide extended release 10 mg daily Actos 30 mg daily (2) Hypertension: Code(s): I10 - Essential (primary) hypertension Category: Medical Qualifiers: Hypertension type: primary hypertension Qualified Code(s): I10 - Essential (primary) hypertension (3) Hyperlipidemia: Code(s): E78.5 - Hyperlipidemia, unspecified Category: Medical Qualifiers: Hyperlipidemia type: pure hypercholesterolemia Qualified Code(s): E78.00 - Pure hypercholesterolemia, unspecified Plan Follow up in 3 months for type 2 diabetes Orders: Orders AMB Hemoglobin A1c Today E11.9 - Type 2 diabetes mellitus without complications Coding Level of Care Code Est Pt Level 4 (08449) Complex EM visit Add On G2211 Diagnoses Type 2 diabetes mellitus with unspecified complications E11.8 Primary hypertension I10 Hypertension type: primary hypertension Pure hypercholesterolemia E78.00 Hyperlipidemia type: pure hypercholesterolemia
[2025-01-06 08:34] LABS: Glucose, Whole Blood 97 mg/dL (60-115)
--- OUTSIDE RECORDS SUMMARY | 2025-01-06 08:39 | XMS_ITS | Clinical Summary ---
Author Organization [facility] Address [address] [phone] Phone Care Team Providers Care Boxing Machine Operator Name Role Phone Jn Lacy [...] file Medical Devices Not on file Insurance [facility] [address] [place] [address] [place] [address] [facility] Care Teams Boxing Machine Operator Relationship Specialty Start Date End Date Jn Lacy MD [address] [place] [phone] PCP - General Family Medicine 10/11/22 Additional Source Comments The information contained in this document represents components of the legal health record. It is not the complete legal health record.[facility]
== END 2025-01-06 09:03 | disposition home or self-care (01) ==
PROVIDERS: PCP Family Medicine; Visit Provider Physician Assistant Medical
DX: E11.8 Type 2 diabetes mellitus with unspecified complications (principal); I10 Essential (primary) hypertension; E78.00 Pure hypercholesterolemia, unspecified; E11.9 Type 2 diabetes mellitus without complications

== ENCOUNTER 2025-01-06 09:10 | Outpatient (REF) | payer BC, MEDICARE, SELFPAY ==
[2025-01-06 10:28] LABS: Alanine Aminotransferase 28 U/L (0-40); Albumin Level 4.9 g/dL (3.5-5.0); Alkaline Phosphatase 81 U/L (39-117); Anion Gap 14 (12-20); Aspartate Amino Transferase 35 U/L (5-37); Blood Urea Nitrogen 13 mg/dL (9-16); Calcium 9.6 mg/dL (8.4-10.2); Carbon Dioxide 28 mmol/L (22-29); Chloride 100 mmol/L (96-108); Cholesterol 172 mg/dL (<200); Estimated Glomerular Filt Rate > 60; HDL Cholesterol 37 mg/dL (>40); Potassium 4.0 mmol/L (3.3-5.1); Sodium 138 mmol/L (135-145); Total Protein 8.9 g/dL (6.5-8.0); Triglycerides 265 mg/dL (<150)
[2025-01-06 11:02] LABS: Microalbum/Creatinine Ratio Ur 94.3 ug/mg cr (<30)
== END 2025-01-06 09:11 | disposition home or self-care (01) ==
LOC: HO.10HDL 09:10
PROVIDERS: Referring Provider Physician Assistant Medical; Visit Provider Family Medicine
DX: Z00.00 Encounter for general adult medical examination without abnormal findings (principal); I10 Essential (primary) hypertension; E11.9 Type 2 diabetes mellitus without complications; I25.10 Atherosclerotic heart disease of native coronary artery without angina pectoris; E78.00 Pure hypercholesterolemia, unspecified
CPT/HCPCS: 36415; 80053; 80061; 82043; 82570; 82947; 83036

== ENCOUNTER 2025-01-23 08:26 | Outpatient (AMB) | payer BC, SELFPAY ==
--- NOTE | 2025-01-23 08:29 | A.OFFPC_ITS ---
Vital Signs 01/23/25 08:33 Height 6 ft Weight 198 lb 8 oz BMI 26.9 BP 120/70 Blood Pressure Location Rt brachial Position Sitting Respiration 16 Pulse 100 Pulse Source Pulse Oximeter Temp 97.3 F Temp Source Temporal Artery Scan Pulse Oximetry (%) 98 Oxygen Delivery Method Room Air Intake Visit Reasons: f/u diabetes, HTN - see comments Intake Note: Tani presents in the office today for a follow up to diabetes and hypertension Allergies lisinopril Allergy (Intermediate, Verified 01/23/25 08:31) Dizziness hornet venom Allergy (Mild, Verified 01/23/25 08:31) Swelling tetracycline Adverse Reaction (Intermediate, Verified 01/23/25 08:31) Unconscious Tobacco use date assessed: 01/23/25 Dental Screening Dental Screen Date: 01/23/25 Did you have a dental visit in the last 12 months?: No Did you have a dental problem in the last 6 months where you did not have access to dental care?: No Was dental information given to patient?: Patient declined HPI f/u diabetes, HTN - see comments HPI Details Patient presents for follow-up diabetes, hypertension and hyperlipidemia Taking all medications as prescribed. Blood pressure 120/70 Recent A1c 7.5%. LDL cholesterol 82 and patient has history of coronary artery disease Feels well. No new complaints. Had advised patient to see preparer making department but he has not done so yet. [facility] Medical History DM type 2 causing vascular disease Routine physical examination Eosinophilia Elevated total protein MIGUEL (obstructive sleep apnea) SVT (supraventricular tachycardia) Atherosclerotic cardiovascular disease Surgical History Hx of knee surgery S/P CABG x 7 Family History Mother Diabetes Father Pancreatic cancer Brother CAD (coronary artery disease) ASHD (arteriosclerotic heart disease) Sister Breast cancer Sister Major depression Brother ASHD (arteriosclerotic heart disease) CAD (coronary artery disease) Social History (Updated 01/23/25 @ 08:33 by Elvia Cooney CMA) Housing: House Alcohol intake: current Alcohol intake frequency: holidays/special occasions only Patient Tobacco Use Status: Former Tobacco user Years Smoked: 40 +/- e-Cigarette/Vaping Use: Never Used Second Hand Smoke Exposure: No service: No Current occupational status: employed Current occupation: [employer] Current occupational exposures/hazards: No Cognitive needs: No Hearing needs: No Vision needs: No Questionnaire PHQ-9 Over the last 2 weeks, how often have you been bothered by any of the following problems? 1. Little interest or pleasure in doing things: not at all 2. Feeling down, depressed, or hopeless: not at all 3. Trouble falling or staying asleep, or sleeping too much: not at all 4. Feeling tired or having little energy: not at all 5. Poor appetite or overeating: not at all 6. Feeling bad about yourself - or that you are a failure or have let yourself or your family down: not at all 7. Trouble concentrating on things, such as reading the newspaper or watching television: not at all 8. Moving or speaking so slowly that other people could have noticed. Or the opposite - being so fidgety or restless that you have been moving around a lot more than usual: not at all 9. Thoughts that you would be better off or of hurting yourself in some way: not at all Total score: 0 Depression Screening Interpretation: Negative Depression Screening Done: Yes 52863 - PHQ-9 Billing: Yes Source: Developed by Drs. Yonny Workman, Grace Reyes, Christopher Smith and colleagues, with an educational catracho from [employer]. Thrive Questionnaire Date Thrive assessed: 01/23/25 I am a: Patient What is your living situation today?: I choose not to answer this question Within the past 12 months, did the food you bought not last and you didn't have the money to get more?: I choose not to answer this question Within the past 12 months, did you worry whether your food would run out before you got money to buy more?: I choose not to answer this question Do you have trouble paying for medicines?: I choose not to answer this question Do you have trouble getting transportation to medical appointments?: I choose not to answer this question Do you have trouble paying your heating and electricity bill?: I choose not to answer this question Do you have trouble taking care of your child, family member or friend?: I choose not to answer this question Do you have trouble with day-to-day activities such as bathing, preparing meals, shopping, managing finances, etc.?: I choose not to answer this question Are you currently unemployed and looking for a job?: I choose not to answer this question Are you interested in more education?: I choose not to answer this question Please select the resources that you would like help with: None THRIVE Score: 0 AUDIT C Alcohol Use Questionnaire (AUDIT-C) 1. How often do you have a drink containing alcohol?: Monthly or less 2. How many drinks containing alcohol do you have on a typical day when you are drinking?: 1 or 2 3. How often do you have six or more drinks on one occasion?: Never Total Score: 1 HARINI-7 AMB Questionnaire HARINI-7 Date HARINI - 7 assessed: 01/23/25 Feeling nervous, anxious, or on edge: 0 = Not at all Not being able to stop or control worryin = Not at all Worrying too much about different things: 0 = Not at all Trouble relaxin = Not at all Being so restless that it is hard to sit still: 0 = Not at all Becoming easily annoyed or irritable: 0 = Not at all Feeling afraid as if something awful might happen: 0 = Not at all Total HARINI-7 score (0-4 normal; 5-9 mild; 10-14 moderate; 15-21 severe): 0 Source: Developed by Drs. Yonny Workman, Grace Reyes, Christopher Smith and colleagues, with an educational catracho from [employer]. HARINI-7 Assessment Billing HARINI-7 Assessment Tool: HARINI-7 Assessment 91686 Review of Systems Const Denies chills, Denies fatigue, Denies fever(s), Denies headache(s) and Denies weakness ENT Denies dizziness and Denies headache(s) Card Denies dyspnea Resp Denies cough, Denies dyspnea, Denies wheezing and Denies other (shortness of breath) Musc Denies numbness and Denies tingling Neuro Denies dizziness, Denies headache(s), Denies numbness, Denies tingling and Denies weakness Psych Denies anxiety and Denies depression Endo Denies fatigue Aller/Immun Denies wheezing Physical exam (Primary Care) Vital Signs: Last Vital Signs Temp 97.3 F 01/23/25 08:33 Pulse 100 01/23/25 08:33 Resp 16 01/23/25 08:33 BP 120/70 01/23/25 08:33 Pulse Ox 98 01/23/25 08:33 Oxygen Delivery Method Room Air 01/23/25 08:33 BMI result Body Mass Index 26.9 Tobacco/Smoking Status: Tobacco use Status Tobacco use date assessed 01/23/25 01/23/25 08:37 Patient Tobacco Use Status Former Tobacco user 01/23/25 08:33 e-Cigarette/Vaping Use Never Used 01/23/25 08:33 PHQ-9: PHQ-9 Score PHQ-9: Total score 0 01/23/25 08:37 Depression Screening Interpretation: Negative Thrive Assessment: Date of Thrive Assessment Date Thrive assessed 01/23/25 01/23/25 08:37 Const General: well developed; No acute distress Nutritional Appearance: well nourished Orientation/consciousness: patient oriented x3 HENMT Head: Yes normocephalic and Yes atraumatic Eyes General: appearance normal, both eyes and all related structures Pupils: Equal, round and reactive pupils present EOM: EOMs intact bilaterally Resp Effort & Inspection: normal respiratory effort Neuro General: patient oriented x3 and gait normal Cranial nerves: Yes Equal, round and reactive pupils present Psych Affect: normal affect Coding Level of Care Code Est Pt Level 4 (97320) Diagnoses Diabetes E11.9 Primary hypertension I10 Hypertension type: primary hypertension Coronary artery disease I25.10 Pure hypercholesterolemia E78.00 Hyperlipidemia type: pure hypercholesterolemia Additional Codes HARINI-7 Assessment Billing - HARINI-7 Assessment Tool: HARINI-7 Assessment [id number] ([id number]) PHQ-9 - 85121 - PHQ-9 Billing: Yes ([id number]) Assessment & Plan Assessment & Plan (1) Diabetes: Code(s): E11.9 - Type 2 diabetes mellitus without complications Category: Medical Plan: A1c 7.5%. Goal is less than 7% He is taking Farxiga at max dose. He is taking metformin 250 mg b.i.d. and does not want to increase this. Taking pioglitazone 30 mg q.a.m. and patient agrees to increase this to 45 mg daily. Continue working on diabetic diet Patient has seen an preparer making department and I again reminded him to make an appointment. (2) Hypertension: Code(s): I10 - Essential (primary) hypertension Category: Medical Qualifiers: Hypertension type: primary hypertension Qualified Code(s): I10 - Essential (primary) hypertension Plan: Blood pressure controlled. Goal is less than 130/80 Continue current medication (3) Coronary artery disease: Code(s): I25.10 - Atherosclerotic heart disease of [place] coronary artery without angina pectoris Category: Medical Plan: Stable (4) Hyperlipidemia: Code(s): E78.5 - Hyperlipidemia, unspecified Category: Medical Qualifiers: Hyperlipidemia type: pure hypercholesterolemia Qualified Code(s): E78.00 - Pure hypercholesterolemia, unspecified Plan: LDL cholesterol has increased above goal of less than 70 He will continue atorvastatin 40 mg daily and work on lifestyle changes including a diet low in saturated fats and cholesterol. We briefly discussed Zetia which could be used as an adjunct medication if needed.
[2025-01-23 08:33] VITALS: BP 120/70; PULSE 100; RESP 16; TEMP 36.3; O2SAT 98; BMI 26.9
--- OUTSIDE RECORDS SUMMARY | 2025-01-23 08:50 | XMS_ITS | Clinical Summary ---
Author Organization [facility] Address [address] [phone] Phone Care Team Providers Care Director Of Materials Management Name Role Phone Jn Lacy MD Primary [...] file Medical Devices Not on file Insurance [facility] [address] [place] [address] [place] [address] [facility] Care Teams Director Of Materials Management Relationship Specialty Start Date End Date Jn Lacy MD [address] [place] [phone] PCP - General Family Medicine 10/11/22 Additional Source Comments The information contained in this document represents components of the legal health record. It is not the complete legal health record.[facility]
== END 2025-01-23 08:51 | disposition home or self-care (01) ==
LOC: HO.HMCFM 08:27
PROVIDERS: PCP Family Medicine; Visit Provider Family Medicine
DX: E11.9 Type 2 diabetes mellitus without complications (principal); I10 Essential (primary) hypertension; I25.10 Atherosclerotic heart disease of native coronary artery without angina pectoris; E78.00 Pure hypercholesterolemia, unspecified

== ENCOUNTER → 2025-01-23 08:26 | Outpatient (BNVA) | payer BC, SELFPAY | PROVIDERS: PCP Family Medicine; Visit Provider Family Medicine | DX: E11.9 Type 2 diabetes mellitus without complications (principal); I10 Essential (primary) hypertension; I25.10 Atherosclerotic heart disease of native coronary artery without angina pectoris; E78.00 Pure hypercholesterolemia, unspecified; Z79.899 Other long term (current) drug therapy | CPT/HCPCS: 96127 ==